=== PATIENT | male | born 1955 | race American Indian/Alaskan Native ===

== ENCOUNTER 2019-07-09 10:28 | Inpatient (IN) | payer OTHER ==
[2019-07-09] MEDS ORDERED: methylPREDNISolone Sod Succinate 125 MG/2 ML INJ IV ONE (11:16)
[2019-07-09] MEDS ORDERED: FUROSEMIDE 40 MG/4 ML INJ IV ONE (11:16)
--- NOTE | 2019-07-09 11:38 | XRay Report ---
CHEST 1 VIEW 07/09/2019 11:16 AM INDICATION / CLINICAL INFORMATION: Dyspnea. COMPARISON: None available. FINDINGS: SUPPORT DEVICES: None. HEART / MEDIASTINUM: No significant abnormality. LUNGS / PLEURA: Lungs are hyperinflated suggesting COPD. There is no focal consolidation or significa nt effusion. No pneumothorax. ADDITIONAL FINDINGS: No significant additional findings. IMPRESSION: 1. No acute findings. Signer Name: Yusef Chavez MD Signed: 07/09/2019 11:34 AM Workstation Name: [employer] ([place])
[2019-07-09 12:04] LABS: Basophils % (Auto) 0.8 % (0.0-1.8); Eosinophils % (Auto) 0.1 % (0.0-4.3); Hematocrit 42.3 % (35.5-45.6); Hemoglobin 13.6 gm/dl (11.8-15.2); Lymphocytes # (Auto) 1.2 K/mm3 (1.2-5.4); Lymphocytes % (Auto) 18.8 % (13.4-35.0); Mean Corpuscular HGB Conc 32 % (32-34); Mean Corpuscular Volume 80 fl (84-94); Monocytes # (Auto) 0.5 K/mm3 (0.0-0.8); Monocytes % (Auto) 7.8 % (0.0-7.3); Platelet Count 180 K/mm3 (140-440); Red Blood Count 5.28 M/mm3 (3.65-5.03); Red Cell Distribution Width 16.3 % (13.2-15.2)
[2019-07-09 12:24] LABS: Alanine Aminotransferase 13 units/L (7-56); BUN/Creatinine Ratio 9; Blood Urea Nitrogen 7 mg/dL (9-20); Calcium 8.8 mg/dL (8.4-10.2); Hemolysis Index 21
[2019-07-09] MEDS ORDERED: IPRATROPIUM 0.02% NEBU 2.5 ML IH ONE ×2 (12:44→13:00)
[2019-07-09] MEDS ORDERED: ALBUTEROL 2.5 MG/3 ML NEBU IH ONE ×2 (12:44→13:00)
[2019-07-09] MEDS ORDERED: levoFLOXacin 750 MG TAB PO ONE (13:56)
--- NOTE | 2019-07-09 15:07 | Emergency Department Report ---
ED Chest Pain HPI - General Chief Complaint: Dyspnea/Respdistress Stated Complaint: DIFFICULTY BREATHING Time Seen by Provider: 07/09/19 10:56 Source: patient, EMS Mode of arrival: Stretcher Limitations: No Limitations - History of Present Illness Severity scale (0 -10): 0 - Related Data Allergies Allergy/AdvReac Type Severity Reaction Status Date / Time No Known Allergies Allergy Unverified 07/09/19 10:47 ED Review of Systems ROS: Stated complaint: DIFFICULTY BREATHING Other details as noted in HPI ED Past Medical Hx - Past Medical History Previous Medical History?: Yes Hx Hypertension: Yes Hx Congestive Heart Failure: Yes Hx COPD: Yes - Social History Smoking Status: Current Every Day Smoker Substance Use Type: Alcohol ED Physical Exam - General Limitations: No Limitations ED Course Vital Signs 07/09/19 07/09/19 07/09/19 11:11 13:45 13:51 Temperature 98.8 F Pulse Rate 88 86 Pulse Rate [ 101 H Anterior Bilateral Throughout] Respiratory 34 H Rate Respiratory 34 H Rate [Anterior Bilateral Throughout] Blood Pressure Blood Pressure 157/89 137/96 [Left] O2 Sat by Pulse 99 Oximetry 07/09/19 07/09/19 07/09/19 13:53 14:15 14:49 Temperature Pulse Rate 100 H 94 H 95 H Pulse Rate [ Anterior Bilateral Throughout] Respiratory 29 H 24 Rate Respiratory Rate [Anterior Bilateral Throughout] Blood Pressure 137/96 Blood Pressure 129/93 128/88 [Left] O2 Sat by Pulse 99 100 Oximetry ED Medical Decision Making - Lab Data Result diagrams: 07/09/19 11:43 07/09/19 11:43 Critical care attestation.: If time is entered above; I have spent that time in minutes in the direct care of this critically ill patient, excluding procedure time. ED Disposition Condition: Stable Referrals: PRIMARY CARE, [Primary Care Provider] - 3-5 Days
--- NOTE | 2019-07-09 15:12 | Emergency Department Report ---
ED Shortness of Breath HPI - General Chief Complaint: Dyspnea/Respdistress Stated Complaint: DIFFICULTY BREATHING Time Seen by Provider: 07/09/19 10:56 Source: patient, EMS Mode of arrival: Stretcher Limitations: No Limitations - History of Present Illness Initial Comments: Mr. Grant is a 63 yo male with hx of HTN, COPD, CHF who presents with shortness of breath, cough wheezing for several days. Followed at the [facility]. SYmptoms are severe. WOrse with exertion. +productive cough no fever +tobacco abuse Arrived via EMS. No relief with albuterol. According to EMS 92% RA saturation Also has mild nondescript 3/10 chest pain, no association with inspiration, cough exertion MD Complaint: shortness of breath, chest pain -: Gradual, days(s) (3) Severity: moderate Consistency: constant Improves With: upright position Worsens With: exertion Known History Of: COPD Associated Symptoms: chest pain - Related Data Allergies Allergy/AdvReac Type Severity Reaction Status Date / Time No Known Allergies Allergy Unverified 07/09/19 10:47 ED Review of Systems ROS: Stated complaint: DIFFICULTY BREATHING Other details as noted in HPI Comment: All other systems reviewed and negative Constitutional: denies: fever, malaise Respiratory: cough, shortness of breath, wheezing Cardiovascular: chest pain ED Past Medical Hx - Past Medical History Previous Medical History?: Yes Hx Hypertension: Yes Hx Congestive Heart Failure: Yes Hx COPD: Yes - Social History Smoking Status: Current Every Day Smoker Substance Use Type: Alcohol ED Physical Exam - General Limitations: No Limitations General appearance: alert, other (speaking full sentences with mild work of breathing) - Head Head exam: Present: atraumatic, normocephalic - Eye Eye exam: Present: normal appearance - ENT ENT exam: Present: mucous membranes moist - Neck Neck exam: Present: normal inspection - Respiratory Respiratory exam: Present: wheezes, decreased breath sounds, prolonged expiratory. Absent: rales, rhonchi, chest wall tenderness, accessory muscle use - Cardiovascular Cardiovascular Exam: Present: regular rate, normal rhythm, normal heart sounds. Absent: systolic murmur, diastolic murmur, rubs, gallop - GI/Abdominal GI/Abdominal exam: Present: soft, normal bowel sounds. Absent: distended, tenderness - Rectal Rectal exam: Present: deferred - Extremities Exam Extremities exam: Present: normal inspection - Neurological Exam Neurological exam: Present: alert, oriented X3 - Psychiatric Psychiatric exam: Present: normal affect, normal mood - Skin Skin exam: Present: warm, dry, intact, normal color. Absent: rash ED Course Vital Signs 07/09/19 07/09/19 07/09/19 11:11 13:45 13:51 Temperature 98.8 F Pulse Rate 88 86 Pulse Rate [ 101 H Anterior Bilateral Throughout] Respiratory 34 H Rate Respiratory 34 H Rate [Anterior Bilateral Throughout] Blood Pressure Blood Pressure 157/89 137/96 [Left] O2 Sat by Pulse 99 Oximetry 07/09/19 07/09/19 07/09/19 13:53 14:15 14:49 Temperature Pulse Rate 100 H 94 H 95 H Pulse Rate [ Anterior Bilateral Throughout] Respiratory 29 H 24 Rate Respiratory Rate [Anterior Bilateral Throughout] Blood Pressure 137/96 Blood Pressure 129/93 128/88 [Left] O2 Sat by Pulse 99 100 Oximetry ED Medical Decision Making - Lab Data Result diagrams: 07/09/19 11:43 07/09/19 11:43 Laboratory Results - last 24 hr 07/09/19 07/09/19 07/09/19 11:43 11:43 14:15 WBC 6.5 RBC 5.28 H Hgb 13.6 Hct 42.3 MCV 80 L MCH 26 L MCHC 32 RDW 16.3 H Plt Count 180 Lymph % (Auto) 18.8 [place] % (Auto) 7.8 H Eos % (Auto) 0.1 Baso % (Auto) 0.8 Lymph # 1.2 [place] # 0.5 Eos # 0.0 Baso # 0.0 Seg Neutrophils % 72.5 H Seg Neutrophils # 4.7 POC ABG pH 7.393 POC ABG pCO2 47.3 H POC ABG pO2 112 H POC ABG HCO3 28.8 POC ABG Total CO2 30 POC ABG O2 Sat 98 POC ABG Base Excess 4 FiO2 40 Sodium 136 L Potassium 4.0 Chloride 97.8 L Carbon Dioxide 25 Anion Gap 17 BUN 7 L Creatinine 0.8 Estimated GFR > 60 BUN/Creatinine Ratio 9 Glucose 103 H Calcium 8.8 Total Bilirubin 0.30 AST 26 ALT 13 Alkaline Phosphatase 54 Troponin T < 0.010 Total Protein 7.3 Albumin 4.0 Albumin/Globulin Ratio 1.2 - Radiology Data Radiology results: report reviewed Chest x-ray: No acute process - Medical Decision Making Upon arrival Mr. Grant, he was in mild distress. After observation, after ambulation he developed severe work of breathing. Requiring non-invasive positive pressure ventilation. ABG revealed chronic CO2 retention. Normal pH. admitted to Medicine service in improved condition. Critical Care Time: Yes Critical care attestation.: If time is entered above; I have spent that time in minutes in the direct care of this critically ill patient, excluding procedure time. 40 minutes of critical care time excluding procedures were used in the care of the patient. Patient required multiple assessments and interventions. I reviewed the electronic medical record. I spoke with consultants involved in the care of the patient. ED Disposition Clinical Impression: COPD with acute exacerbation, Acute respiratory failure with hypoxia Disposition: OP ADMIT IP TO THIS HOSP Is pt being admited?: Yes Does the pt Need Aspirin: No Condition: Stable Instructions: Chronic Obstructive Pulmonary Disease (ED) Referrals: PRIMARY CARE, [Primary Care Provider] - 3-5 Days
[2019-07-09] MEDS ORDERED: ACETAMINOPHEN 325 MG TAB PO PRN ×2 (20:47→22:38)
--- NOTE | 2019-07-09 22:37 | History and Physical Report ---
History of Present Illness Date of examination: 07/09/19 Date of admission: 07/09/19 15:13 Chief complaint: SOB and wheezing for one week. History of present illness: 63 yo male with hx of HTN, COPD, CHF presents with shortness of breath, cough wheezing for one week. More so xince AM. Followed at the [facility]. SYmptoms are severe. WOrse with exertion. +productive cough of mucoid sputum.No fever, tobacco abuse present.Arrived via EMS. No relief with albuterol. According to EMS 92% RA saturation Past Medical History Hypertension Congestive Heart Failure COPD Surgery History N/a Family History Htn Social History Smoking Status: Current Every Day Smoker Substance Use Type: Alcohol Review of Systems ROS: Stated complaint: DIFFICULTY BREATHING Other details as noted in HPI Comment: All other systems reviewed and negative Constitutional: denies: fever, malaise Respiratory: cough, shortness of breath, wheezing Cardiovascular: chest pain Medications and Allergies Allergies Allergy/AdvReac Type Severity Reaction Status Date / Time No Known Allergies Allergy Unverified 07/09/19 10:47 Home Medications Medication Instructions Recorded Confirmed Last Taken Type Acetaminophen [Tylenol] 1,000 mg PO DAILY 07/09/19 07/09/19 Unknown History Albuterol Sulfate [Proventil Hfa] 1 puff INHALATION PRN PRN 07/09/19 07/09/19 07/09/19 History Aspirin [Adult Aspirin] 81 mg PO DAILY 07/09/19 07/09/19 07/08/19 History Budesonide/Formoterol Fumarate 1 puff INHALATION DAILY 07/09/19 07/09/19 07/09/19 History [Symbicort 80-4.5 Mcg Inhaler] Ibuprofen [Motrin 800 MG tab] 800 mg PO Q8HR PRN 07/09/19 07/09/19 07/08/19 History Simvastatin 10 mg PO DAILY 07/09/19 07/09/19 07/08/19 History Active Meds: Active Medications Acetaminophen (Tylenol) 650 mg PO Q4H PRN PRN Reason: Pain, Mild (1-3) Exam - Constitutional Vitals: Temp Pulse Resp BP Pulse Ox 99.3 F 82 22 148/88 98 07/09/19 19:43 07/09/19 19:43 07/09/19 19:43 07/09/19 19:43 07/09/19 19:43 General appearance: Present: no acute distress, well-nourished - EENT Eyes: Present: PERRL ENT: hearing intact, clear oral mucosa - Neck Neck: Present: supple, normal ROM - Respiratory Respiratory effort: normal Respiratory: bilateral: diminished, rhonchi, wheezing - Cardiovascular Heart rate: 78 Rhythm: regular Heart Sounds: Present: S1 & S2. Absent: rub, click - Extremities Extremities: no ischemia, pulses intact, pulses symmetrical, No edema Peripheral Pulses: within normal limits - Abdominal General gastrointestinal: Present: soft, non-tender, non-distended, normal bowel sounds Male genitourinary: Present: normal - Rectal Rectal Exam: deferred - Integumentary Integumentary: Present: clear, warm, dry - Musculoskeletal Musculoskeletal: gait normal, strength equal bilaterally - Psychiatric Psychiatric: appropriate mood/affect, intact judgment & insight - Neurologic Neurologic: CNII-XII intact, moves all extremities - Allied Health Allied health notes reviewed: nursing, case management Results - Labs CBC & Chem 7: 07/10/19 03:42 07/10/19 03:42 Labs: Laboratory Last Values WBC 6.5 K/mm3 (4.5-11.0) 07/09/19 11:43 RBC 5.28 M/mm3 (3.65-5.03) H 07/09/19 11:43 Hgb 13.6 gm/dl (11.8-15.2) 07/09/19 11:43 Hct 42.3 % (35.5-45.6) 07/09/19 11:43 MCV 80 fl (84-94) L 07/09/19 11:43 MCH 26 pg (28-32) L 07/09/19 11:43 MCHC 32 % (32-34) 07/09/19 11:43 RDW 16.3 % (13.2-15.2) H 07/09/19 11:43 Plt Count 180 K/mm3 (140-440) 07/09/19 11:43 Lymph % (Auto) 18.8 % (13.4-35.0) 07/09/19 11:43 [place] % (Auto) 7.8 % (0.0-7.3) H 07/09/19 11:43 Eos % (Auto) 0.1 % (0.0-4.3) 07/09/19 11:43 Baso % (Auto) 0.8 % (0.0-1.8) 07/09/19 11:43 Lymph # 1.2 K/mm3 (1.2-5.4) 07/09/19 11:43 [place] # 0.5 K/mm3 (0.0-0.8) 07/09/19 11:43 Eos # 0.0 K/mm3 (0.0-0.4) 07/09/19 11:43 Baso # 0.0 K/mm3 (0.0-0.1) 07/09/19 11:43 Seg Neutrophils % 72.5 % (40.0-70.0) H 07/09/19 11:43 Seg Neutrophils # 4.7 K/mm3 (1.8-7.7) 07/09/19 11:43 POC ABG pH 7.393 (7.35-7.45) 07/09/19 14:15 POC ABG pCO2 47.3 (35-45) H 07/09/19 14:15 POC ABG pO2 112 (80-105) H 07/09/19 14:15 POC ABG HCO3 28.8 (22-26 mml/L) 07/09/19 14:15 POC ABG Total CO2 30 (23-27mmol/L) 07/09/19 14:15 POC ABG O2 Sat 98 07/09/19 14:15 POC ABG Base Excess 4 ((-2) - (+3)mmol/L) 07/09/19 14:15 FiO2 40 % 07/09/19 14:15 Sodium 136 mmol/L (137-145) L 07/09/19 11:43 Potassium 4.0 mmol/L (3.6-5.0) 07/09/19 11:43 Chloride 97.8 mmol/L (98-107) L 07/09/19 11:43 Carbon Dioxide 25 mmol/L (22-30) 07/09/19 11:43 Anion Gap 17 mmol/L 07/09/19 11:43 BUN 7 mg/dL (9-20) L 07/09/19 11:43 Creatinine 0.8 mg/dL (0.8-1.5) 07/09/19 11:43 Estimated GFR > 60 ml/min 07/09/19 11:43 BUN/Creatinine Ratio 9 % 07/09/19 11:43 Glucose 103 mg/dL (75-100) H 07/09/19 11:43 Calcium 8.8 mg/dL (8.4-10.2) 07/09/19 11:43 Total Bilirubin 0.30 mg/dL (0.1-1.2) 07/09/19 11:43 AST 26 units/L (5-40) 07/09/19 11:43 ALT 13 units/L (7-56) 07/09/19 11:43 Alkaline Phosphatase 54 units/L (35-129) 07/09/19 11:43 Troponin T < 0.010 ng/mL (0.00-0.029) 07/09/19 11:43 Total Protein 7.3 g/dL (6.3-8.2) 07/09/19 11:43 Albumin 4.0 g/dL (3.9-5) 07/09/19 11:43 Albumin/Globulin Ratio 1.2 % 07/09/19 11:43 Short CBC 07/09/19 07/10/19 Range/Units 11:43 03:42 WBC 6.5 3.3 L (4.5-11.0) K/mm3 Hgb 13.6 13.0 (11.8-15.2) gm/dl Hct 42.3 40.7 (35.5-45.6) % Plt Count 180 175 (140-440) K/mm3 BMP 07/09/19 07/10/19 11:43 03:42 Sodium 136 L 137 Potassium 4.0 4.2 Chloride 97.8 L 94.3 L Carbon Dioxide 25 27 BUN 7 L 13 Creatinine 0.8 0.8 Glucose 103 H 146 H Calcium 8.8 8.9 Cardiac Enzymes 07/09/19 Range/Units 11:43 Troponin T < 0.010 (0.00-0.029) ng/mL Liver Function 07/09/19 07/10/19 Range/Units 11:43 03:42 Total Bilirubin 0.30 0.30 (0.1-1.2) mg/dL AST 26 23 (5-40) units/L ALT 13 12 (7-56) units/L Alkaline Phosphatase 54 48 (35-129) units/L Albumin 4.0 4.0 (3.9-5) g/dL - Imaging and Cardiology EKG: report reviewed (97 NSR ,RONALDO,LAFB,VPC's) Chest x-ray: report reviewed (NAF) Assessment and Plan Advance Directives: Yes (Full code) VTE prophylaxis?: Chemical Plan of care discussed with patient/family: Yes - Patient Problems (1) Acute respiratory failure with hypoxia Current Visit: Yes Status: Acute Plan to address problem: Was Hypoxic and Hypercarbic on arrival. IV Solumedrol IV abx -Levaquin and Duonebs QID and Prn Pulm consult (2) COPD with acute exacerbation Current Visit: Yes Status: Acute Plan to address problem: Was Hypoxic and Hypercarbic on arrival. IV Solumedrol IV abx -Levaquin and Duonebs QID and Prn Pulm consult (3) HLD (hyperlipidemia) Current Visit: Yes Status: Chronic Qualifiers: Hyperlipidemia type: mixed hyperlipidemia Qualified Code(s): E78.2 - Mixed hyperlipidemia Plan to address problem: On Statins HDL high May not need statins. Will defer to primary team. (4) Nicotine dependence Current Visit: Yes Status: Chronic Qualifiers: Nicotine product type: cigarettes Plan to address problem: Counselled Nicoderm patch applied (5) Hyponatremia Current Visit: Yes Status: Acute Plan to address problem: Very mild Avoid diuretics (6) DVT prophylaxis Current Visit: Yes Status: Acute Plan to address problem: On Heparin and GI prophylaxis
[2019-07-09] MEDS ORDERED: HYDROmorphone 1 MG/1 ML INJ IV PRN (22:38)
[2019-07-09] MEDS ORDERED: ONDANSETRON 4 MG/2 ML INJ IV PRN (22:38)
[2019-07-09] MEDS ORDERED: IPRATROPIUM/ALBUTEROL SULFATE 3 ML AMPUL.NEB IH PRN (22:39)
[2019-07-09] MEDS ORDERED: ALBUTEROL 2.5 MG/3 ML NEBU IH PRN (22:58)
[2019-07-10] MEDS: methylPREDNISolone Sod Succinate 125 MG/2 ML INJ IV SCH ×4 (00:07→21:39)
[2019-07-10] MEDS: guaiFENesin ER 600 MG TAB PO SCH ×3 (00:44→21:39)
[2019-07-10 05:16] LABS: Basophils % (Auto) 0.3 % (0.0-1.8); Hematocrit 40.7 % (35.5-45.6); Lymphocytes # (Auto) 0.7 K/mm3 (1.2-5.4); Lymphocytes % (Auto) 21.7 % (13.4-35.0); Mean Corpuscular HGB Conc 32 % (32-34); Mean Corpuscular Volume 80 fl (84-94); Monocytes # (Auto) 0.1 K/mm3 (0.0-0.8); Monocytes % (Auto) 2.9 % (0.0-7.3); Platelet Count 175 K/mm3 (140-440); Red Cell Distribution Width 16.5 % (13.2-15.2)
[2019-07-10 05:39] LABS: Alanine Aminotransferase 12 units/L (7-56); BUN/Creatinine Ratio 16; Blood Urea Nitrogen 13 mg/dL (9-20); Calcium 8.9 mg/dL (8.4-10.2); Hemolysis Index 6
[2019-07-10] MEDS: IPRATROPIUM/ALBUTEROL SULFATE 3 ML AMPUL.NEB IH SCH ×4 (08:50→19:16)
[2019-07-10] MEDS ORDERED: NON-FORMULARY EACH (Simvastatin [Simvastatin] 10 MG) PO SCH (10:00)
[2019-07-10] MEDS: ASPIRIN EC 81 MG TAB PO SCH (10:36)
[2019-07-10] MEDS: HEPARIN 5,000 UNIT/1 ML VIAL SUB-Q SCH ×2 (10:36→21:38)
[2019-07-10] MEDS: FAMOTIDINE 20 MG/2 ML INJ IV SCH ×2 (10:36→21:39)
--- NOTE | 2019-07-10 12:06 | Progress Note ---
Assessment and Plan / Acute respiratory failure with hypoxia Was Hypoxic and Hypercarbic on arrival. placed on IV Solumedrol IV abx -Levaquin and Duonebs QID and Prn Pulm consulted / COPD with acute exacerbation Cont IV Solumedrol IV abx -Levaquin and Duonebs QID and Prn Follow pulmonary recommendation / HLD (hyperlipidemia), On Statins /Nicotine dependence Counselled, Nicoderm patch applied /Hyponatremia Very mild, Avoid diuretics / DVT prophylaxis, On Heparin Brief History: 63 yo male with hx of HTN, COPD, CHF presents with shortness of breath, cough wheezing for one week. Followed at the [facility]. Has +productive cough with mucoid sputum. Radiological data: CXR : no acute findings Hospitalist Physical exam: GENERAL: Elderly -[place] male lying on bed appeared to be in no discomfort. HEENT: Normocephalic. Atraumatic. No conjunctival congestion or icterus. Patient has moist mucous membranes. NECK: Supple. Trachea midline. CHEST/LUNGS: Positive wheezes auscultated bilaterally, breathing nonlabored. HEART/CARDIOVASCULAR: Regular in rate and rhythm. S1 and S2 positive. ABDOMEN: Abdomen is soft, nontender. Patient has normal bowel sounds. SKIN: There is no rash. Warm and dry. NEURO: No focal motor deficit. Follows command. MUSCULOSKELETAL: No joint effusion or tenderness. EXTRIMITY: No edema, no cyanosis or clubbing. PSYCH: Cooperative. Subjective Date of service: 07/10/19 Interval history: Patient seen and examined. Medical records and medication list reviewed. No acute event overnight noted by the RN. Patient continued to complain soft difficulty breathing even on minimal exertion. Patient is tolerating diet. Discussed plan of care at bedside with patient. Objective - Constitutional Vitals: Vital Signs - 12hr 07/10/19 07/10/19 05:08 08:27 Temperature 97.8 F Pulse Rate 87 Respiratory 18 17 Rate Blood Pressure 137/90 O2 Sat by Pulse 92 Oximetry - Labs CBC & Chem 7: 07/10/19 03:42 07/10/19 03:42 Labs: Abnormal lab results 07/09/19 07/09/19 07/09/19 Range/Units 11:43 11:43 14:15 WBC (4.5-11.0) K/mm3 RBC 5.28 H (3.65-5.03) M/mm3 MCV 80 L (84-94) fl MCH 26 L (28-32) pg RDW 16.3 H (13.2-15.2) % Lymph # (1.2-5.4) K/mm3 Seg Neutrophils % (40.0-70.0) % POC ABG pCO2 47.3 H (35-45) POC ABG pO2 112 H (80-105) Sodium 136 L (137-145) mmol/L Chloride 97.8 L (98-107) mmol/L BUN 7 L (9-20) mg/dL Glucose 103 H (75-100) mg/dL 07/10/19 07/10/19 Range/Units 03:42 03:42 WBC 3.3 L (4.5-11.0) K/mm3 RBC 5.10 H (3.65-5.03) M/mm3 MCV 80 L (84-94) fl MCH 25 L (28-32) pg RDW 16.5 H (13.2-15.2) % Lymph # 0.7 L (1.2-5.4) K/mm3 Seg Neutrophils % 75.1 H (40.0-70.0) % POC ABG pCO2 (35-45) POC ABG pO2 (80-105) Sodium (137-145) mmol/L Chloride 94.3 L (98-107) mmol/L BUN (9-20) mg/dL Glucose 146 H (75-100) mg/dL
[2019-07-10] MEDS ORDERED: METOPROLOL TARTRATE 5 MG/5 ML INJ IV ONE (20:22)
[2019-07-10] MEDS: PRAVASTATIN 20 MG TAB PO SCH (21:39)
[2019-07-10] MEDS ORDERED: LEVALBUTEROL 0.63 MG/3 ML NEBU IH PRN (23:48)
[2019-07-10] MEDS ORDERED: IPRATROPIUM 0.02% NEBU 2.5 ML IH PRN (23:49)
[2019-07-11] MEDS ORDERED: LEVALBUTEROL 0.63 MG/3 ML NEBU IH PRN (01:00)
[2019-07-11] MEDS: methylPREDNISolone Sod Succinate 125 MG/2 ML INJ IV SCH ×3 (05:36→21:23)
[2019-07-11] MEDS ORDERED: METOPROLOL TARTRATE 5 MG/5 ML INJ IV ONE (09:22)
[2019-07-11] MEDS: HEPARIN 5,000 UNIT/1 ML VIAL SUB-Q SCH ×2 (09:35→21:23)
[2019-07-11] MEDS: guaiFENesin ER 600 MG TAB PO SCH ×2 (09:35→21:22)
[2019-07-11] MEDS: ASPIRIN EC 81 MG TAB PO SCH (09:35)
[2019-07-11] MEDS: FAMOTIDINE 20 MG/2 ML INJ IV SCH ×2 (10:20→21:22)
[2019-07-11] MEDS: AMIODARONE 900 MG in DEXTROSE 5% IN WATER 482 ML IV SCH (11:51)
--- NOTE | 2019-07-11 13:43 | Progress Note ---
Assessment and Plan /SVT - placed on amio drip, consult cardiology / Acute respiratory failure with hypoxia Was Hypoxic and Hypercarbic on arrival. placed on IV Solumedrol IV abx -Levaquin and Duonebs QID and Prn Pulm consulted / COPD with acute exacerbation Cont IV Solumedrol IV abx -Levaquin and Duonebs QID and Prn Follow pulmonary recommendation / HLD (hyperlipidemia), On Statins /Nicotine dependence Counselled, Nicoderm patch applied /Hyponatremia Very mild, Avoid diuretics / DVT prophylaxis, On Heparin Brief History: 63 yo male with hx of HLD, COPD, ? CHF presents with shortness of breath, cough wheezing for one week. Followed at the [facility]. Has +productive cough with mucoid sputum. Radiological data: CXR : no acute findings Hospitalist Physical exam: GENERAL: Elderly -[place] male lying on bed appeared to be in no discomfort. HEENT: Normocephalic. Atraumatic. No conjunctival congestion or icterus. Patient has moist mucous membranes. NECK: Supple. Trachea midline. CHEST/LUNGS: Positive wheezes auscultated bilaterally, breathing nonlabored. HEART/CARDIOVASCULAR: Tachycardic. S1 and S2 positive. ABDOMEN: Abdomen is soft, nontender. Patient has normal bowel sounds. SKIN: There is no rash. Warm and dry. NEURO: No focal motor deficit. Follows command. MUSCULOSKELETAL: No joint effusion or tenderness. EXTRIMITY: No edema, no cyanosis or clubbing. PSYCH: Cooperative. Subjective Date of service: 07/11/19 Interval history: Patient seen and examined. Medical records and medication list reviewed. No acute event overnight noted by the RN. Patient continued to complain soft difficulty breathing even on minimal exertion. Patient is tolerating diet. Noted on SVT on the monitor o/n, heart rate ranging from 130 to high 150s Discussed plan of care at bedside with patient. Objective - Constitutional Vitals: Vital Signs - 12hr 07/11/19 07/11/19 07/11/19 07:30 08:00 08:01 Temperature 97.9 F Pulse Rate 93 H Pulse Rate [ 108 H Anterior Bilateral Throughout] Respiratory 16 18 Rate Respiratory 18 Rate [Anterior Bilateral Throughout] Blood Pressure 135/93 O2 Sat by Pulse 95 Oximetry 07/11/19 10:00 Temperature Pulse Rate 121 H Pulse Rate [ Anterior Bilateral Throughout] Respiratory Rate Respiratory Rate [Anterior Bilateral Throughout] Blood Pressure 131/82 O2 Sat by Pulse 95 Oximetry - Labs CBC & Chem 7: 07/10/19 03:42 07/10/19 03:42
[2019-07-11] MEDS ORDERED: IPRATROPIUM 0.02% NEBU 2.5 ML IH SCH (14:00)
[2019-07-11] MEDS ORDERED: LEVALBUTEROL 0.63 MG/3 ML NEBU IH SCH (14:00)
[2019-07-11] MEDS: IPRATROPIUM/ALBUTEROL SULFATE 3 ML AMPUL.NEB IH SCH ×2 (14:13→20:02)
[2019-07-11] MEDS: dilTIAZem 30 MG TAB PO SCH ×3 (14:39→21:22)
--- NOTE | 2019-07-11 16:20 | Consultation ---
History of Present Illness Consult date: 07/11/19 Requesting physician: AMBER GALARZA Consult reason: other (SVT) History of present illness: Mr. Grant is a 63 y/o male with a medical history significant for CAD s/p PCI (approx 10 years ago), CHF, COPD, current tobacco abuse and hypertension who presented to [facility] on 07/09/19 with shortness of breath and chest pain that began on Friday and worsened over the next few days. He has followed with a pastry wrapper at [place], but not recently and is unsure when his last visit was. He describes the CP as left-sided pressure that occurs mostly with movement. It is non-reproducible. He also endorses an intermittent cough productive of white sputum for the past few weeks. Troponins negative and EKG with NAF. On 07/11/19, he was found to be in SVT; an amiodarone drip and PO diltiazem were initiated. He subsequently converted to NSR with several very transient breakthroughs of SVT. Past History Past Medical History: CAD, COPD, hypertension, other (tobacco abuse) Past Surgical History: PTCA Medications and Allergies Allergies Allergy/AdvReac Type Severity Reaction Status Date / Time No Known Allergies Allergy Unverified 07/09/19 10:47 Home Medications Medication Instructions Recorded Confirmed Last Taken Type Acetaminophen [Tylenol] 1,000 mg PO DAILY 07/09/19 07/09/19 Unknown History Albuterol Sulfate [Proventil Hfa] 1 puff INHALATION PRN PRN 07/09/19 07/09/19 07/09/19 History Aspirin [Adult Aspirin] 81 mg PO DAILY 07/09/19 07/09/19 07/08/19 History Budesonide/Formoterol Fumarate 1 puff INHALATION DAILY 07/09/19 07/09/19 07/09/19 History [Symbicort 80-4.5 Mcg Inhaler] Ibuprofen [Motrin 800 MG tab] 800 mg PO Q8HR PRN 07/09/19 07/09/19 07/08/19 History Simvastatin 10 mg PO DAILY 07/09/19 07/09/19 07/08/19 History Active Meds: Active Medications Acetaminophen (Tylenol) 650 mg PO Q4H PRN PRN Reason: Pain MILD(1-3)/Fever >100.5/BARNEY Albuterol/Ipratropium (Duoneb *Not For Prn Use*) 1 ampul IH Q6HRT [facility] Last Admin: 07/11/19 14:13 Dose: 1 ampul Documented by: Aspirin (Halfprin Ec) 81 mg PO DAILY [facility] Last Admin: 07/11/19 09:35 Dose: 81 mg Documented by: Budesonide 0.5 mg/ (Arformoterol Tartrate 15 mcg) 0 mg IH Q12HRT [facility] Diltiazem HCl (Cardizem) 30 mg PO Q4HR [facility] Last Admin: 07/11/19 14:39 Dose: 30 mg Documented by: Famotidine (Pepcid) 20 mg IV BID [facility] Last Admin: 07/11/19 10:20 Dose: 20 mg Documented by: Guaifenesin (Mucinex Er) 600 mg PO BID [facility] Last Admin: 07/11/19 09:35 Dose: 600 mg Documented by: Heparin Sodium (Porcine) (Heparin) 5,000 unit SUB-Q Q12HR [facility] Last Admin: 07/11/19 09:35 Dose: 5,000 unit Documented by: Hydromorphone HCl (Dilaudid) 0.5 mg IV Q3H PRN PRN Reason: Pain , Severe (7-10) Levofloxacin/Dextrose (Levaquin 750mg/150ml) 750 mg in 150 mls @ 100 mls/hr IV Q24HR [facility]; Protocol Last Admin: 07/11/19 10:10 Dose: 100 mls/hr Documented by: Amiodarone HCl 900 mg/ (Dextrose) 500 mls @ 33.333 mls/hr IV DIRECT [facility]; Protocol Stop: 07/12/19 12:00 Last Admin: 07/11/19 11:51 Dose: 1 mg/min, 33.333 mls/hr Documented by: Methylprednisolone Sodium Succinate (Solu-Medrol) 40 mg IV Q8HR [facility] Last Admin: 07/11/19 14:39 Dose: 40 mg Documented by: Ondansetron HCl (Zofran) 4 mg IV Q8H PRN PRN Reason: Nausea And Vomiting Oxycodone/Acetaminophen (Percocet 5/325) 1 tab PO Q6H PRN PRN Reason: Pain, Moderate (4-6) Pravastatin Sodium (Pravachol) 20 mg PO QHS [facility] Last Admin: 07/10/19 21:39 Dose: 20 mg Documented by: Sodium Chloride (Sodium Chloride Flush Syringe 10 Ml) 10 ml IV BID [facility] Last Admin: 07/11/19 09:36 Dose: 10 ml Documented by: Sodium Chloride (Sodium Chloride Flush Syringe 10 Ml) 10 ml IV PRN PRN PRN Reason: LINE FLUSH Review of Systems All systems: negative Cardiovascular: chest pain Respiratory: shortness of breath Physical Examination Vital Signs Pulse Ox 98 07/09/19 10:54 General appearance: no acute distress HEENT: Positive: PERRL Neck: Positive: neck supple Cardiac: Positive: Reg Rate and Rhythm Lungs: Positive: Decreased Breath Sounds Neuro: Positive: Grossly Intact Abdomen: Positive: Unremarkable Male genitourinary: Positive: deferred Skin: Positive: Clear Musculoskeletal: Normal Range of Motion Extremities: Present: normal Results 07/10/19 03:42 07/10/19 03:42 - Imaging and Cardiology Echo: pending EKG: report reviewed (NSR with possible old infarct, ST-depression) - EKG Interpretation EKG: sinus rhythm EKG interpretations - Telemetry EKG Rhythm: Sinus Rhythm Repolarization changes or abnormalities: ST or T wave suggestive of ischemia Myocardial infarction: anterior [place] (old age or i Assessment and Plan Mr. Grant is a 63 y/o male admitted with chest pain and SOB. Will obtain echocardiogram and Lexiscan stress test in AM. Continue PO diltiazem and amiodarone drip for now - will likely wean in AM. Will hold on beta tyshawn for now d/t COPD exacerbation. Continue other cardiac management for now. The patient has been seen in conjunction with Dr. Ricketts, who agrees with the assessment and plan. - Patient Problems (1) SVT (supraventricular tachycardia) Current Visit: Yes Status: Acute (2) Acute respiratory failure with hypoxia Current Visit: Yes Status: Acute (3) COPD with acute exacerbation Current Visit: Yes Status: Acute (4) Hypertension Current Visit: Yes Status: Chronic (5) Presence of stent in coronary artery in patient with coronary artery disease Current Visit: Yes Status: Chronic
[2019-07-11] MEDS: PRAVASTATIN 20 MG TAB PO SCH (21:22)
[2019-07-11] MEDS: guaiFENesin DM 200/20 MG ORAL LIQD 10 ML PO PRN (21:24)
[2019-07-12] MEDS: IPRATROPIUM/ALBUTEROL SULFATE 3 ML AMPUL.NEB IH SCH ×4 (02:35→19:26)
[2019-07-12] MEDS: dilTIAZem 30 MG TAB PO SCH ×3 (02:55→09:26)
[2019-07-12] MEDS: methylPREDNISolone Sod Succinate 125 MG/2 ML INJ IV SCH ×3 (05:40→22:50)
[2019-07-12] MEDS: AMIODARONE 900 MG in DEXTROSE 5% IN WATER 482 ML IV SCH (07:07)
[2019-07-12] MEDS ORDERED: REGADENOSON 0.4 MG/5 ML INJ IV ONE ×2 (07:10→08:54)
[2019-07-12] MEDS: ASPIRIN EC 81 MG TAB PO SCH (09:26)
[2019-07-12] MEDS: guaiFENesin ER 600 MG TAB PO SCH ×2 (09:26→22:49)
[2019-07-12] MEDS: HEPARIN 5,000 UNIT/1 ML VIAL SUB-Q SCH (09:26)
[2019-07-12] MEDS: FAMOTIDINE 20 MG/2 ML INJ IV SCH (09:26)
[2019-07-12] MEDS: guaiFENesin DM 200/20 MG ORAL LIQD 10 ML PO PRN (09:26)
--- NOTE | 2019-07-12 11:56 | Progress Note ---
Assessment and Plan tele reviewed - currently in SR with very brief bouts (2-3 seconds) of apparent atrial flutter with 2:1 conduction overnight. Optimize HR - increase cardizem dosage and d/c amio gtt. Initiate full dosage lovenox BID and plan for conversion to OAC prior to discharge. Await echo. Cont management of COPD exac per primary. Consider pulmonary consultation as pt is noted to have significant wheezing on evaluation despite Duonebs, IV steroids and abx. Plan for lexiscan MPI stress test in AM pending respiratory status is improved. NPO after MN. The patient has been seen in conjunction with Dr. Rodríguez who agrees with the assessment and plan of care. - Patient Problems (1) Paroxysmal atrial flutter Current Visit: Yes Status: Acute (2) Acute respiratory failure with hypoxia Current Visit: Yes Status: Acute (3) COPD with acute exacerbation Current Visit: Yes Status: Acute (4) CAD (coronary artery disease) Current Visit: Yes Status: Chronic (5) Stented coronary artery Current Visit: Yes Status: Chronic (6) Hypertension Current Visit: Yes Status: Chronic (7) Tobacco use Current Visit: Yes Status: Chronic Subjective Date of service: 07/12/19 Principal diagnosis: cp; palpitations; copd exac; PAFlutter Interval history: pt resting in bed, no current chest pain or palpitations. still with SOB and wheezing. tele reviewed - currently in SR with very brief bouts (2-3 seconds) of apparent atrial flutter with 2:1 conduction overnight. Objective Last Vital Signs Temp 98.0 F 07/12/19 07:35 Pulse 83 07/12/19 08:00 Resp 20 07/12/19 08:00 BP 130/78 07/12/19 07:35 Pulse Ox 96 07/12/19 08:07 - Physical Examination General: No Apparent Distress HEENT: Positive: PERRL Neck: Positive: neck supple Cardiac: Positive: Reg Rate and Rhythm, S1/S2 Lungs: Positive: Decreased Breath Sounds, Wheezes, Oxygen Neuro: Positive: Grossly Intact Abdomen: Positive: Unremarkable Skin: Positive: Clear Musculoskeletal: Normal Range of Motion Extremities: Present: normal - Imaging and Cardiology EKG: report reviewed (NSR with possible old infarct, ST-depression) Echo: pending - Telemetry EKG Rhythm: Sinus Rhythm Repolarization changes or abnormalities: ST or T wave suggestive of ischemia Myocardial infarction: anterior CA (old age or i
[2019-07-12] MEDS: dilTIAZem 60 MG TAB PO SCH ×2 (13:15→20:12)
[2019-07-12 13:53] LABS: BUN/Creatinine Ratio 20; Blood Urea Nitrogen 16 mg/dL (9-20); Calcium 8.8 mg/dL (8.4-10.2); Hemolysis Index 6
--- NOTE | 2019-07-12 14:25 | Progress Note ---
Assessment and Plan /SVT then converted Atrial flutter - s/p amio drip, consulted cardiology - on cardizem and therapeutic dose of lovenox - plan for stress test when respiratory status improves / Acute respiratory failure Was Hypoxic and Hypercarbic on arrival. placed on IV Solumedrol IV abx -Levaquin and Duonebs QID and Prn Pulm consulted / COPD with acute exacerbation Cont IV Solumedrol IV abx -Levaquin and Duonebs QID and Prn Follow pulmonary recommendation / HLD (hyperlipidemia), On Statins /Nicotine dependence Counselled, Nicoderm patch applied /Hyponatremia Very mild, Avoid diuretics / DVT prophylaxis, On Heparin Brief History: 63 yo male with hx of HLD, COPD, ? CHF presents with shortness of breath, cough wheezing for one week. Followed at the [facility]. Has +productive cough with mucoid sputum. admitted for COPD. Now noted SVT/atrial flutter on monitor Radiological data: CXR : no acute findings Hospitalist Physical exam: GENERAL: Elderly -[place] male lying on bed appeared to be in no discomfort. HEENT: Normocephalic. Atraumatic. No conjunctival congestion or icterus. Patient has moist mucous membranes. NECK: Supple. Trachea midline. CHEST/LUNGS: Positive wheezes auscultated bilaterally, breathing nonlabored. HEART/CARDIOVASCULAR: Tachycardic. S1 and S2 positive. ABDOMEN: Abdomen is soft, nontender. Patient has normal bowel sounds. SKIN: There is no rash. Warm and dry. NEURO: No focal motor deficit. Follows command. MUSCULOSKELETAL: No joint effusion or tenderness. EXTRIMITY: No edema, no cyanosis or clubbing. PSYCH: Cooperative. Subjective Date of service: 07/12/19 Principal diagnosis: cp; palpitations; copd exac; PAFlutter Interval history: Patient seen and examined. Medical records and medication list reviewed. No acute event overnight noted by the RN. Patient continued to complain of difficulty breathing even on minimal exertion. Patient is tolerating diet. Noted on atrial flutter on tele O/N Stress test cancel today for his SOB Discussed plan of care at bedside with patient. Objective - Constitutional Vitals: Vital Signs - 12hr 07/12/19 07/12/19 07/12/19 02:55 04:29 05:40 Temperature 98.7 F Pulse Rate 75 67 68 Pulse Rate [ Anterior Bilateral Throughout] Respiratory 24 Rate Respiratory Rate [Anterior Bilateral Throughout] Blood Pressure 139/91 140/90 140/90 O2 Sat by Pulse 94 Oximetry 07/12/19 07/12/19 07/12/19 07:35 08:00 08:07 Temperature 98.0 F Pulse Rate 67 Pulse Rate [ 83 Anterior Bilateral Throughout] Respiratory 18 24 Rate Respiratory 20 Rate [Anterior Bilateral Throughout] Blood Pressure 130/78 O2 Sat by Pulse 90 96 Oximetry 07/12/19 07/12/19 13:00 13:47 Temperature 97.9 F Pulse Rate 77 Pulse Rate [ 86 Anterior Bilateral Throughout] Respiratory 18 Rate Respiratory 18 Rate [Anterior Bilateral Throughout] Blood Pressure 142/88 O2 Sat by Pulse 93 Oximetry - Labs CBC & Chem 7: 07/10/19 03:42 07/12/19 13:02 Labs: Abnormal lab results 07/12/19 Range/Units 13:02 Sodium 135 L (137-145) mmol/L Chloride 93.8 L (98-107) mmol/L Glucose 179 H (75-100) mg/dL Magnesium 2.40 H (1.7-2.3) mg/dL
[2019-07-12] MEDS ORDERED: ENOXAPARIN 100 MG/1 ML INJ SUB-Q SCH (22:00)
[2019-07-12] MEDS: PRAVASTATIN 20 MG TAB PO SCH (22:49)
[2019-07-12] MEDS: FAMOTIDINE 20 MG TAB PO SCH (22:49)
[2019-07-13] MEDS: IPRATROPIUM/ALBUTEROL SULFATE 3 ML AMPUL.NEB IH SCH ×4 (01:47→19:11)
[2019-07-13] MEDS: dilTIAZem 60 MG TAB PO SCH ×4 (02:24→20:35)
[2019-07-13] MEDS: oxyCODONE /ACETAMINOPHEN 5-325MG TAB PO PRN (02:24)
[2019-07-13] MEDS: methylPREDNISolone Sod Succinate 125 MG/2 ML INJ IV SCH ×3 (06:13→22:39)
[2019-07-13] MEDS ORDERED: AMINOPHYLLINE 500 MG/20 ML INJ IV ONE ×2 (09:50→10:30)
[2019-07-13] MEDS ORDERED: REGADENOSON 0.4 MG/5 ML INJ IV ONE (10:00)
[2019-07-13] MEDS ORDERED: AMINOPHYLLINE 50 MG in SODIUM CHLORIDE 0.9% 100 ML IV ONE (10:28)
--- NOTE | 2019-07-13 10:44 | Progress Note ---
Assessment and Plan Pt underwent lexiscan MPI stress test this AM, results pending. He developed severe wheezing and respiratory distress after administration of lexiscan, lexiscan reversed and wheezing improved although O2 sats remain 88-90%. Recommend pulmonary consultation and possible tx to IMCU/CCU for closer observation. D/w Dr. Lynn. Echo reviewed - EF 55-60%, mild to mod TR, mod pulm HTN with RVSP 58mmHg. Cont present cardiac management, including cardizem and full dosage lovenox BID. The patient has been seen in conjunction with Dr. Rodríguez who agrees with the assessment and plan of care. - Patient Problems (1) Paroxysmal atrial flutter Current Visit: Yes Status: Acute (2) Acute respiratory failure with hypoxia Current Visit: Yes Status: Acute (3) COPD with acute exacerbation Current Visit: Yes Status: Acute (4) CAD (coronary artery disease) Current Visit: Yes Status: Chronic (5) Stented coronary artery Current Visit: Yes Status: Chronic (6) Hypertension Current Visit: Yes Status: Chronic (7) Tobacco use Current Visit: Yes Status: Chronic (8) Pulmonary HTN Current Visit: Yes Status: Chronic Subjective Date of service: 07/13/19 Principal diagnosis: cp; palpitations; copd exac; PAFlutter Interval history: pt for stress test today Objective Last Vital Signs Temp 97.9 F 07/13/19 07:20 Pulse 64 07/13/19 08:42 Resp 18 07/13/19 07:20 BP 164/94 07/13/19 07:20 Pulse Ox 93 07/13/19 07:20 - Physical Examination General: No Apparent Distress HEENT: Positive: PERRL Neck: Positive: neck supple Cardiac: Positive: Reg Rate and Rhythm, S1/S2 Lungs: Positive: Decreased Breath Sounds, Wheezes, Oxygen Neuro: Positive: Grossly Intact Abdomen: Positive: Unremarkable Skin: Positive: Clear Musculoskeletal: Normal Range of Motion Extremities: Present: normal - Labs and Meds Comprehensive Metabolic Panel 07/12/19 Range/Units 13:02 Sodium 135 L (137-145) mmol/L Potassium 4.4 (3.6-5.0) mmol/L Chloride 93.8 L (98-107) mmol/L Carbon Dioxide 25 (22-30) mmol/L BUN 16 (9-20) mg/dL Creatinine 0.8 (0.8-1.5) mg/dL Glucose 179 H (75-100) mg/dL Calcium 8.8 (8.4-10.2) mg/dL - Imaging and Cardiology EKG: report reviewed (NSR with possible old infarct, ST-depression) Echo: pending Repolarization changes or abnormalities: ST or T wave suggestive of ischemia Myocardial infarction: anterior [place] (old age or i
--- NOTE | 2019-07-13 11:52 | Event Note ---
Date: 07/13/19 S/p lexiscan MPI stress test this AM which was negative. Yusef MICHAELS NP / DR. GARCIA
[2019-07-13] MEDS: FAMOTIDINE 20 MG TAB PO SCH ×2 (12:08→22:39)
[2019-07-13] MEDS: guaiFENesin ER 600 MG TAB PO SCH ×2 (12:08→22:39)
[2019-07-13] MEDS: ASPIRIN EC 81 MG TAB PO SCH (12:09)
[2019-07-13] MEDS: ENOXAPARIN 60 MG/0.6 ML INJ SUB-Q SCH ×2 (12:09→22:39)
--- NOTE | 2019-07-13 12:30 | Progress Note ---
Assessment and Plan Assessment and plan: SVT then converted Atrial flutter - s/p amio drip, consulted cardiology - on cardizem and therapeutic dose of lovenox - Stress test done today , Normal Acute respiratory failure due to COPD exacerbation Was Hypoxic and Hypercarbic on arrival. placed on IV Solumedrol IV abx -Levaquin and Duonebs QID and Prn Pulm consulted COPD with acute exacerbation Cont IV Solumedrol IV abx -Levaquin and Duonebs QID and Prn Consult pulmonology since patient had more wheezing after doing stress test today HLD (hyperlipidemia), On Statins Nicotine dependence Counselled, Nicoderm patch applied Hyponatremia Very mild, Avoid diuretics DVT prophylaxis, On Heparin History Interval history: Chest pain Shortness of breath Hospitalist Physical - Physical exam Narrative exam: Gen: Not in acute distress, lying in bed, malnourished HEENT: Normocephalic, atraumatic Neck: supple, no JVD Heart: S1 and S2 reg, no murmurs, rubs or gallop Lungs: Bilateral rhonchi, wheezing, Abd: soft, non tender, non distended, normal BS, Ext: No edema, no clubbing, no cyanosis Neuro: Awake, alert, oriented X 3, - Constitutional Vitals: Temp Pulse Resp BP Pulse Ox 97.9 F 78 18 142/83 96 07/13/19 11:56 07/13/19 11:56 07/13/19 11:56 07/13/19 11:56 07/13/19 11:56 General appearance: Present: no acute distress Results - Labs CBC & Chem 7: 07/10/19 03:42 07/12/19 13:02 Labs: Laboratory Last Values WBC 3.3 K/mm3 (4.5-11.0) L 07/10/19 03:42 RBC 5.10 M/mm3 (3.65-5.03) H 07/10/19 03:42 Hgb 13.0 gm/dl (11.8-15.2) 07/10/19 03:42 Hct 40.7 % (35.5-45.6) 07/10/19 03:42 MCV 80 fl (84-94) L 07/10/19 03:42 MCH 25 pg (28-32) L 07/10/19 03:42 MCHC 32 % (32-34) 07/10/19 03:42 RDW 16.5 % (13.2-15.2) H 07/10/19 03:42 Plt Count 175 K/mm3 (140-440) 07/10/19 03:42 Lymph % (Auto) 21.7 % (13.4-35.0) 07/10/19 03:42 [place] % (Auto) 2.9 % (0.0-7.3) 07/10/19 03:42 Eos % (Auto) 0.0 % (0.0-4.3) 07/10/19 03:42 Baso % (Auto) 0.3 % (0.0-1.8) 07/10/19 03:42 Lymph # 0.7 K/mm3 (1.2-5.4) L 07/10/19 03:42 [place] # 0.1 K/mm3 (0.0-0.8) 07/10/19 03:42 Eos # 0.0 K/mm3 (0.0-0.4) 07/10/19 03:42 Baso # 0.0 K/mm3 (0.0-0.1) 07/10/19 03:42 Seg Neutrophils % 75.1 % (40.0-70.0) H 07/10/19 03:42 Seg Neutrophils # 2.5 K/mm3 (1.8-7.7) 07/10/19 03:42 POC ABG pH 7.393 (7.35-7.45) 07/09/19 14:15 POC ABG pCO2 47.3 (35-45) H 07/09/19 14:15 POC ABG pO2 112 (80-105) H 07/09/19 14:15 POC ABG HCO3 28.8 (22-26 mml/L) 07/09/19 14:15 POC ABG Total CO2 30 (23-27mmol/L) 07/09/19 14:15 POC ABG O2 Sat 98 07/09/19 14:15 POC ABG Base Excess 4 ((-2) - (+3)mmol/L) 07/09/19 14:15 FiO2 40 % 07/09/19 14:15 Sodium 135 mmol/L (137-145) L 07/12/19 13:02 Potassium 4.4 mmol/L (3.6-5.0) 07/12/19 13:02 Chloride 93.8 mmol/L (98-107) L 07/12/19 13:02 Carbon Dioxide 25 mmol/L (22-30) 07/12/19 13:02 Anion Gap 21 mmol/L 07/12/19 13:02 BUN 16 mg/dL (9-20) 07/12/19 13:02 Creatinine 0.8 mg/dL (0.8-1.5) 07/12/19 13:02 Estimated GFR > 60 ml/min 07/12/19 13:02 BUN/Creatinine Ratio 20 % 07/12/19 13:02 Glucose 179 mg/dL (75-100) H 07/12/19 13:02 POC Glucose 190 (70-105) H 07/13/19 12:03 Hemoglobin A1c 6.0 % (4-6) 07/10/19 03:42 Calcium 8.8 mg/dL (8.4-10.2) 07/12/19 13:02 Magnesium 2.40 mg/dL (1.7-2.3) H 07/12/19 13:02 Total Bilirubin 0.30 mg/dL (0.1-1.2) 07/10/19 03:42 AST 23 units/L (5-40) 07/10/19 03:42 ALT 12 units/L (7-56) 07/10/19 03:42 Alkaline Phosphatase 48 units/L (35-129) 07/10/19 03:42 Troponin T < 0.010 ng/mL (0.00-0.029) 07/09/19 11:43 Total Protein 7.4 g/dL (6.3-8.2) 07/10/19 03:42 Albumin 4.0 g/dL (3.9-5) 07/10/19 03:42 Albumin/Globulin Ratio 1.2 % 07/10/19 03:42 Active Medications - Current Medications Current Medications: Generic Name Dose Route Start Last Admin Trade Name Freq PRN Reason Stop Dose Admin Acetaminophen 650 mg 07/09/19 22:38 Tylenol PO Q4H PRN Pain MILD(1-3)/Fever >100.5/BARNEY Albuterol/Ipratropium 1 ampul 07/11/19 14:00 07/13/19 07:33 Duoneb *Not For Prn Use* IH 1 ampul Q6HRT SIDNEY Administration Aspirin 81 mg 07/10/19 10:00 07/13/19 12:09 Halfprin Ec PO 81 mg DAILY SIDNEY Administration Budesonide 0.5 mg/ 0 mg 07/11/19 20:00 Arformoterol Tartrate 15 mcg IH Q12HRT [facility] Diltiazem HCl 60 mg 07/12/19 13:00 07/13/19 12:09 Cardizem PO 60 mg Q6H S[facility] Administration Enoxaparin Sodium 60 mg 07/13/19 10:00 07/13/19 12:09 Enoxaparin SUB-Q 60 mg Q12HR SIDNEY Administration Famotidine 20 mg 07/12/19 22:00 07/13/19 12:08 Pepcid PO 20 mg BID S[facility] Administration Guaifenesin 600 mg 07/10/19 01:00 07/13/19 12:08 Mucinex Er PO 600 mg BID SIDNEY Administration Guaifenesin 10 ml 07/11/19 20:28 07/12/19 09:26 Guaifenesin Dm Syrup PO 10 ml Q4H PRN Administration Cough Hydromorphone HCl 0.5 mg 07/09/19 22:38 Dilaudid IV Q3H PRN Pain , Severe (7-10) Levofloxacin/Dextrose 750 mg in 150 mls @ 100 mls/hr 07/10/19 10:00 07/13/19 12:08 Levaquin 750mg/150ml IV 07/14/19 11:29 100 mls/hr Q24HR SIDNEY Administration Protocol Methylprednisolone Sodium Succinate 40 mg 07/11/19 13:45 07/13/19 06:13 Solu-Medrol IV 40 mg Q8HR SIDNEY Administration Ondansetron HCl 4 mg 07/09/19 22:38 Zofran IV Q8H PRN Nausea And Vomiting Oxycodone/Acetaminophen 1 tab 07/09/19 22:38 07/13/19 02:24 Percocet 5/325 PO 1 tab Q6H PRN Administration Pain, Moderate (4-6) Pravastatin Sodium 20 mg 07/10/19 22:00 07/12/19 22:49 Pravachol PO 20 mg QHS SIDNEY Administration Sodium Chloride 10 ml 07/10/19 10:00 07/13/19 12:11 Sodium Chloride Flush Syringe 10 Ml IV 10 ml BID SIDNEY Administration Sodium Chloride 10 ml 07/09/19 22:38 Sodium Chloride Flush Syringe 10 Ml IV PRN PRN LINE FLUSH Nutrition/Malnutrition Assess - Dietary Evaluation Nutrition/Malnutrition Findings: Nutrition Notes Start: 07/12/19 13:49 Freq: Status: Active Protocol: Document 07/12/19 13:49 LP (Rec: 07/12/19 13:50 LP [id number]) Nutrition Notes Need for Assessment generated from: Low BMI Initial or Follow up Brief Note Current Diagnosis COPD,Hypertension,Heart Failure Current Diet NPO Pertinent Medications Solumedrol Weight Status Underweight Subjective/Other Information Screen for low BMI. 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 Slight temporal wasting observed. Nutrition Intervention Revisit per MD consult or patient Sign Off request:
--- NOTE | 2019-07-13 13:01 | Treadmill Report ---
SINGLE ISOTOPE DUAL STUDY MYOCARDIAL PERFUSION SCAN REPORT AGE: 63. SEX: Male. REFERRING PHYSICIAN: Adebayo Lynn MD, hospitalist. The patient received 10 mCi of technetium 99m Myoview intravenously under resting conditions. Resting myocardial perfusion scan was done. Subsequently, the patient underwent Lexiscan stress test as per the protocol. During Lexiscan stress, the patient received 28 mCi of technetium 99m Myoview intravenously. The patient developed respiratory distress associated with wheezing and he received 50 mg of intravenous aminophylline. He also received a breathing treatment by respiratory therapist. His O2 saturation was 88-90%. After 30-60 minutes, post-stress images were done. Computerized reconstruction images were performed for analysis. The post-stress images did not reveal any perfusion abnormality. Gated study did not reveal any wall motion abnormality. Left ventricular ejection fraction was normal and was calculated to be 70%. The resting images were also normal. CONCLUSION: 1. Shortness of breath, wheezing and cough and these symptoms became less after the patient received intravenous aminophylline and breathing treatment. 2. No chest pain. 3. No perfusion abnormality in the resting as well as stress myocardial perfusion scan imaging after the patient underwent Lexiscan stress test. 4. No wall motion abnormality. 5. Normal left ventricular systolic function and it was calculated to be 70%. JOB# [id number] [facility]
--- NOTE | 2019-07-13 15:39 | Consultation ---
History of Present Illness Consult date: 07/13/19 Requesting physician: LACI CHRISTIANSEN Reason for consult: dyspnea History of present illness: 63 yo admitted with increased SOB, wheezing, cough, congestion. Hospital course complicated by atrial flutter. On O2. Not any better. No hemoptysis, fevers, chills. Active Medications Acetaminophen (Tylenol) 650 mg PO Q4H PRN PRN Reason: Pain MILD(1-3)/Fever >100.5/BARNEY Albuterol/Ipratropium (Duoneb *Not For Prn Use*) 1 ampul IH Q6HRT [facility] Last Admin: 07/13/19 13:36 Dose: 1 ampul Documented by: Aspirin (Halfprin Ec) 81 mg PO DAILY [facility] Last Admin: 07/13/19 12:09 Dose: 81 mg Documented by: Budesonide 0.5 mg/ (Arformoterol Tartrate 15 mcg) 0 mg IH Q12HRT [facility] Diltiazem HCl (Cardizem) 60 mg PO Q6H [facility] Last Admin: 07/13/19 12:09 Dose: 60 mg Documented by: Enoxaparin Sodium (Enoxaparin) 60 mg SUB-Q Q12HR [facility] Last Admin: 07/13/19 12:09 Dose: 60 mg Documented by: Famotidine (Pepcid) 20 mg PO BID [facility] Last Admin: 07/13/19 12:08 Dose: 20 mg Documented by: Guaifenesin (Mucinex Er) 600 mg PO BID [facility] Last Admin: 07/13/19 12:08 Dose: 600 mg Documented by: Guaifenesin (Guaifenesin Dm Syrup) 10 ml PO Q4H PRN PRN Reason: Cough Last Admin: 07/12/19 09:26 Dose: 10 ml Documented by: Hydromorphone HCl (Dilaudid) 0.5 mg IV Q3H PRN PRN Reason: Pain , Severe (7-10) Levofloxacin/Dextrose (Levaquin 750mg/150ml) 750 mg in 150 mls @ 100 mls/hr IV Q24HR [facility]; Protocol Stop: 07/14/19 11:29 Last Infusion: 07/13/19 13:20 Dose: Infused Documented by: Methylprednisolone Sodium Succinate (Solu-Medrol) 80 mg IV Q8HR [facility] Ondansetron HCl (Zofran) 4 mg IV Q8H PRN PRN Reason: Nausea And Vomiting Oxycodone/Acetaminophen (Percocet 5/325) 1 tab PO Q6H PRN PRN Reason: Pain, Moderate (4-6) Last Admin: 07/13/19 02:24 Dose: 1 tab Documented by: Pravastatin Sodium (Pravachol) 20 mg PO QHS [facility] Last Admin: 07/12/19 22:49 Dose: 20 mg Documented by: Sodium Chloride (Sodium Chloride Flush Syringe 10 Ml) 10 ml IV BID [facility] Last Admin: 07/13/19 12:11 Dose: 10 ml Documented by: Sodium Chloride (Sodium Chloride Flush Syringe 10 Ml) 10 ml IV PRN PRN PRN Reason: LINE FLUSH Past History Past Medical History: CAD, COPD, hypertension, other (tobacco abuse) Past Surgical History: PTCA Social history: smoking, full code. denies: alcohol abuse, prescription drug abuse, IV drug use Family history: other (No pulm issues reported) Medications and Allergies Allergies Allergy/AdvReac Type Severity Reaction Status Date / Time No Known Allergies Allergy Unverified 07/09/19 10:47 Home Medications Medication Instructions Recorded Confirmed Last Taken Type Acetaminophen [Tylenol] 1,000 mg PO DAILY 07/09/19 07/09/19 Unknown History Albuterol Sulfate [Proventil Hfa] 1 puff INHALATION PRN PRN 07/09/19 07/09/19 07/09/19 History Aspirin [Adult Aspirin] 81 mg PO DAILY 07/09/19 07/09/19 07/08/19 History Budesonide/Formoterol Fumarate 1 puff INHALATION DAILY 07/09/19 07/09/19 07/09/19 History [Symbicort 80-4.5 Mcg Inhaler] Ibuprofen [Motrin 800 MG tab] 800 mg PO Q8HR PRN 07/09/19 07/09/19 07/08/19 History Simvastatin 10 mg PO DAILY 07/09/19 07/09/19 07/08/19 History Active Meds: Active Medications Acetaminophen (Tylenol) 650 mg PO Q4H PRN PRN Reason: Pain MILD(1-3)/Fever >100.5/BARNEY Albuterol/Ipratropium (Duoneb *Not For Prn Use*) 1 ampul IH Q6HRT [facility] Last Admin: 07/13/19 13:36 Dose: 1 ampul Documented by: Aspirin (Halfprin Ec) 81 mg PO DAILY [facility] Last Admin: 07/13/19 12:09 Dose: 81 mg Documented by: Budesonide 0.5 mg/ (Arformoterol Tartrate 15 mcg) 0 mg IH Q12HRT [facility] Diltiazem HCl (Cardizem) 60 mg PO Q6H [facility] Last Admin: 07/13/19 12:09 Dose: 60 mg Documented by: Enoxaparin Sodium (Enoxaparin) 60 mg SUB-Q Q12HR [facility] Last Admin: 07/13/19 12:09 Dose: 60 mg Documented by: Famotidine (Pepcid) 20 mg PO BID [facility] Last Admin: 07/13/19 12:08 Dose: 20 mg Documented by: Guaifenesin (Mucinex Er) 600 mg PO BID [facility] Last Admin: 07/13/19 12:08 Dose: 600 mg Documented by: Guaifenesin (Guaifenesin Dm Syrup) 10 ml PO Q4H PRN PRN Reason: Cough Last Admin: 07/12/19 09:26 Dose: 10 ml Documented by: Hydromorphone HCl (Dilaudid) 0.5 mg IV Q3H PRN PRN Reason: Pain , Severe (7-10) Levofloxacin/Dextrose (Levaquin 750mg/150ml) 750 mg in 150 mls @ 100 mls/hr IV Q24HR [facility]; Protocol Stop: 07/14/19 11:29 Last Infusion: 07/13/19 13:20 Dose: Infused Documented by: Methylprednisolone Sodium Succinate (Solu-Medrol) 80 mg IV Q8HR [facility] Ondansetron HCl (Zofran) 4 mg IV Q8H PRN PRN Reason: Nausea And Vomiting Oxycodone/Acetaminophen (Percocet 5/325) 1 tab PO Q6H PRN PRN Reason: Pain, Moderate (4-6) Last Admin: 07/13/19 02:24 Dose: 1 tab Documented by: Pravastatin Sodium (Pravachol) 20 mg PO QHS [facility] Last Admin: 07/12/19 22:49 Dose: 20 mg Documented by: Sodium Chloride (Sodium Chloride Flush Syringe 10 Ml) 10 ml IV BID [facility] Last Admin: 07/13/19 12:11 Dose: 10 ml Documented by: Sodium Chloride (Sodium Chloride Flush Syringe 10 Ml) 10 ml IV PRN PRN PRN Reason: LINE FLUSH Review of Systems All systems: negative Physical Examination Vital signs: Vital Signs Pulse Ox 98 07/09/19 10:54 General appearance: no acute distress, alert Eyes: non-icteric ENT: oropharynx moist Neck: supple Effort: normal Ascultation: Bilateral: wheezes Cardiovascular: regular rate and rhythm (no mrg) Gastrointestinal: normoactive bowel sounds, soft, non-tender, non-distended Integumentary: normal Extremities: no cyanosis, no edema, pink and warm normal mental status, non-focal exam, pupils equal and round, CN II-XII normal mood appropriate, affect normal Results - Laboratory Findings CBC and BMP: 07/10/19 03:42 07/12/19 13:02 ABG POC ABG pH 7.393 (7.35-7.45) 07/09/19 14:15 POC ABG pCO2 47.3 (35-45) H 07/09/19 14:15 POC ABG pO2 112 (80-105) H 07/09/19 14:15 POC ABG HCO3 28.8 (22-26 mml/L) 07/09/19 14:15 POC ABG Total CO2 30 (23-27mmol/L) 07/09/19 14:15 POC ABG O2 Sat 98 07/09/19 14:15 Abnormal lab findings: Abnormal Labs 07/09/19 07/09/19 07/09/19 11:43 11:43 14:15 WBC RBC 5.28 H MCV 80 L MCH 26 L RDW 16.3 H Sullivan % (Auto) 7.8 H Lymph # Seg Neutrophils % 72.5 H POC ABG pCO2 47.3 H POC ABG pO2 112 H Sodium 136 L Chloride 97.8 L BUN 7 L Glucose 103 H POC Glucose Magnesium 07/10/19 07/10/19 07/12/19 03:42 03:42 13:02 WBC 3.3 L RBC 5.10 H MCV 80 L MCH 25 L RDW 16.5 H Sullivan % (Auto) Lymph # 0.7 L Seg Neutrophils % 75.1 H POC ABG pCO2 POC ABG pO2 Sodium 135 L Chloride 94.3 L 93.8 L BUN Glucose 146 H 179 H POC Glucose Magnesium 2.40 H 07/13/19 12:03 WBC RBC MCV MCH RDW Sullivan % (Auto) Lymph # Seg Neutrophils % POC ABG pCO2 POC ABG pO2 Sodium Chloride BUN Glucose POC Glucose 190 H Magnesium - Diagnostic Findings Chest x-ray: report reviewed, image reviewed (hyperinflation) Assessment and Plan Imp: 1. COPD, probably severe, with acute exac. 2. Acute respiratory failure, hypoxia 3. Acute bronchitis 4. Chronic respiratory failure, hypercapnea 2/2 #1 5. Nicotine dependence, cigarettes 6. Paroxysmal atrial flutter 7. Pulm HTN Rec: 1. Increase Solumedrol 2. Cont. Duonebs; recommend home neb machine w/ Duonebs at d/c 3. Has Symbicort given by [facility]; needs to be using 2 puffs BID and return to [facility] for more medication/samples, etc.; he can also contact [employer] to apply for financial assistance w/ meds 4. Needs Proventil HFA refill at d/c 5. Home O2 eval. at d/c 6. Stop smoking, counseled 7. Pulm HTN and atrial arrhythmias probably related to severe COPD; outpatient PFTs Plan of care reviewed with patient, he understands/agrees Thanks for the consult.
[2019-07-13] MEDS: PRAVASTATIN 20 MG TAB PO SCH (22:39)
[2019-07-14] MEDS: IPRATROPIUM/ALBUTEROL SULFATE 3 ML AMPUL.NEB IH SCH ×4 (02:27→19:21)
[2019-07-14] MEDS: dilTIAZem 60 MG TAB PO SCH ×4 (02:30→18:54)
[2019-07-14] MEDS: methylPREDNISolone Sod Succinate 125 MG/2 ML INJ IV SCH ×3 (06:27→21:49)
[2019-07-14] MEDS: FAMOTIDINE 20 MG TAB PO SCH ×2 (09:27→21:49)
[2019-07-14] MEDS: ENOXAPARIN 60 MG/0.6 ML INJ SUB-Q SCH (09:27)
[2019-07-14] MEDS: ASPIRIN EC 81 MG TAB PO SCH (09:27)
[2019-07-14] MEDS: guaiFENesin ER 600 MG TAB PO SCH ×2 (09:27→21:50)
--- NOTE | 2019-07-14 10:28 | Progress Note ---
Assessment and Plan Pt underwent lexiscan MPI stress test yesterday which was negative. Echo reviewed - EF 55-60%, mild to mod TR, mod pulm HTN with RVSP 58mmHg. Currently stable cardiac status. Cont cardizem and convert lovenox to Eliquis 5mg BID. Pulmonary following. Nothing further to add from cardiac perspective at this time. Will sign off. Recommend follow up in our office with Dr. Ricketts within 1-2 weeks of discharge ([phone]). The patient has been seen in conjunction with Dr. Rodríguez who agrees with the assessment and plan of care. - Patient Problems (1) Paroxysmal atrial flutter Current Visit: Yes Status: Acute (2) Acute respiratory failure with hypoxia Current Visit: Yes Status: Acute (3) COPD with acute exacerbation Current Visit: Yes Status: Acute (4) CAD (coronary artery disease) Current Visit: Yes Status: Chronic (5) Stented coronary artery Current Visit: Yes Status: Chronic (6) Hypertension Current Visit: Yes Status: Chronic (7) Tobacco use Current Visit: Yes Status: Chronic (8) Pulmonary HTN Current Visit: Yes Status: Chronic Subjective Date of service: 07/14/19 Principal diagnosis: cp; palpitations; copd exac; PAFlutter Interval history: pt resting in bed, states he is feeling a little better, still with significant OAKES. in SR on tele with no acute events overnight. Objective Last Vital Signs Temp 97.9 F 07/14/19 07:31 Pulse 68 07/14/19 07:49 Resp 18 07/14/19 07:31 BP 151/91 07/14/19 07:49 Pulse Ox 97 07/14/19 07:31 - Physical Examination General: No Apparent Distress HEENT: Positive: PERRL Neck: Positive: neck supple Cardiac: Positive: Reg Rate and Rhythm, S1/S2 Lungs: Positive: Decreased Breath Sounds, Wheezes, Oxygen Neuro: Positive: Grossly Intact Abdomen: Positive: Unremarkable Skin: Positive: Clear Musculoskeletal: Normal Range of Motion Extremities: Present: normal - Imaging and Cardiology EKG: report reviewed (NSR with possible old infarct, ST-depression) Echo: pending Repolarization changes or abnormalities: ST or T wave suggestive of ischemia Myocardial infarction: anterior [place] (old age or i
--- NOTE | 2019-07-14 10:34 | Progress Note ---
Assessment and Plan - Patient Problems (1) Acute respiratory failure with hypoxia Current Visit: Yes Status: Acute (2) COPD with acute exacerbation Current Visit: Yes Status: Acute (3) Hyponatremia Current Visit: Yes Status: Acute (4) Hypertension Current Visit: Yes Status: Chronic Subjective Principal diagnosis: cp; palpitations; copd exac; PAFlutter Interval history: feels better Objective Vital Signs - 12hr 07/14/19 07/14/19 07/14/19 00:15 00:31 04:48 Temperature 98.1 F 98.0 F Pulse Rate 78 73 Respiratory 22 20 18 Rate Blood Pressure 163/86 Blood Pressure 141/68 [Left] O2 Sat by Pulse 99 88 Oximetry 07/14/19 07/14/19 07:31 07:49 Temperature 97.9 F Pulse Rate 68 68 Respiratory 18 Rate Blood Pressure 151/91 151/91 Blood Pressure [Left] O2 Sat by Pulse 97 Oximetry Constitutional: no acute distress, alert Eyes: non-icteric ENT: oropharynx moist Neck: supple Effort: normal Ascultation: Bilateral: diminished breath sounds Cardiovascular: regular rate and rhythm (no mrg) Gastrointestinal: normoactive bowel sounds, soft, non-tender, non-distended Integumentary: normal Extremities: no cyanosis, no edema, pink and warm Neurologic: normal mental status, non-focal exam, pupils equal and round, CN II-XII normal Psychiatric: mood appropriate, affect normal CBC and BMP: 07/10/19 03:42 07/12/19 13:02 ABG, PT/INR, D-dimer: ABG POC ABG pH 7.393 (7.35-7.45) 07/09/19 14:15 POC ABG pCO2 47.3 (35-45) H 07/09/19 14:15 POC ABG pO2 112 (80-105) H 07/09/19 14:15 POC ABG HCO3 28.8 (22-26 mml/L) 07/09/19 14:15 POC ABG Total CO2 30 (23-27mmol/L) 07/09/19 14:15 POC ABG O2 Sat 98 07/09/19 14:15 Abnormal lab findings: Abnormal Labs 07/09/19 07/09/19 07/09/19 11:43 11:43 14:15 WBC RBC 5.28 H MCV 80 L MCH 26 L RDW 16.3 H Edmunds % (Auto) 7.8 H Lymph # Seg Neutrophils % 72.5 H POC ABG pCO2 47.3 H POC ABG pO2 112 H Sodium 136 L Chloride 97.8 L BUN 7 L Glucose 103 H POC Glucose Magnesium 07/10/19 07/10/19 07/12/19 03:42 03:42 13:02 WBC 3.3 L RBC 5.10 H MCV 80 L MCH 25 L RDW 16.5 H Ed[place]ds % (Auto) Lymph # 0.7 L Seg Neutrophils % 75.1 H POC ABG pCO2 POC ABG pO2 Sodium 135 L Chloride 94.3 L 93.8 L BUN Glucose 146 H 179 H POC Glucose Magnesium 2.40 H 07/13/19 12:03 WBC RBC MCV MCH RDW Edmunds % (Auto) Lymph # Seg Neutrophils % POC ABG pCO2 POC ABG pO2 Sodium Chloride BUN Glucose POC Glucose 190 H Magnesium
--- NOTE | 2019-07-14 18:12 | Progress Note ---
Assessment and Plan Assessment and plan: SVT then converted Atrial flutter - s/p amio drip, consulted cardiology - on cardizem and therapeutic dose of lovenox - Stress test done 07/13 was normal Acute respiratory failure due to COPD exacerbation Was Hypoxic and Hypercarbic on arrival. placed on IV Solumedrol IV abx -Levaquin and Duonebs QID and Prn Pulm consulted COPD with acute exacerbation Cont IV Solumedrol IV abx -Levaquin and Duonebs QID and Prn Consult pulmonology since patient had more wheezing after doing stress test today HLD (hyperlipidemia), On Statins Nicotine dependence Counselled, Nicoderm patch applied Hyponatremia Very mild, Avoid diuretics DVT prophylaxis, On Heparin History Interval history: Chest pain Shortness of breath Hospitalist Physical - Physical exam Narrative exam: Gen: Not in acute distress, lying in bed, malnourished HEENT: Normocephalic, atraumatic Neck: supple, no JVD Heart: S1 and S2 reg, no murmurs, rubs or gallop Lungs: Bilateral rhonchi, wheezing, Abd: soft, non tender, non distended, normal BS, Ext: No edema, no clubbing, no cyanosis Neuro: Awake, alert, oriented X 3, - Constitutional Vitals: Temp Pulse Resp BP Pulse Ox 97.9 F 73 18 136/84 100 07/14/19 15:28 07/14/19 15:28 07/14/19 15:28 07/14/19 15:28 07/14/19 15:28 General appearance: Present: no acute distress Results - Labs CBC & Chem 7: 07/10/19 03:42 07/12/19 13:02 Labs: Laboratory Last Values WBC 3.3 K/mm3 (4.5-11.0) L 07/10/19 03:42 RBC 5.10 M/mm3 (3.65-5.03) H 07/10/19 03:42 Hgb 13.0 gm/dl (11.8-15.2) 07/10/19 03:42 Hct 40.7 % (35.5-45.6) 07/10/19 03:42 MCV 80 fl (84-94) L 07/10/19 03:42 MCH 25 pg (28-32) L 07/10/19 03:42 MCHC 32 % (32-34) 07/10/19 03:42 RDW 16.5 % (13.2-15.2) H 07/10/19 03:42 Plt Count 175 K/mm3 (140-440) 07/10/19 03:42 Lymph % (Auto) 21.7 % (13.4-35.0) 07/10/19 03:42 Christian % (Auto) 2.9 % (0.0-7.3) 07/10/19 03:42 Eos % (Auto) 0.0 % (0.0-4.3) 07/10/19 03:42 Baso % (Auto) 0.3 % (0.0-1.8) 07/10/19 03:42 Lymph # 0.7 K/mm3 (1.2-5.4) L 07/10/19 03:42 Christian # 0.1 K/mm3 (0.0-0.8) 07/10/19 03:42 Eos # 0.0 K/mm3 (0.0-0.4) 07/10/19 03:42 Baso # 0.0 K/mm3 (0.0-0.1) 07/10/19 03:42 Seg Neutrophils % 75.1 % (40.0-70.0) H 07/10/19 03:42 Seg Neutrophils # 2.5 K/mm3 (1.8-7.7) 07/10/19 03:42 POC ABG pH 7.393 (7.35-7.45) 07/09/19 14:15 POC ABG pCO2 47.3 (35-45) H 07/09/19 14:15 POC ABG pO2 112 (80-105) H 07/09/19 14:15 POC ABG HCO3 28.8 (22-26 mml/L) 07/09/19 14:15 POC ABG Total CO2 30 (23-27mmol/L) 07/09/19 14:15 POC ABG O2 Sat 98 07/09/19 14:15 POC ABG Base Excess 4 ((-2) - (+3)mmol/L) 07/09/19 14:15 FiO2 40 % 07/09/19 14:15 Sodium 135 mmol/L (137-145) L 07/12/19 13:02 Potassium 4.4 mmol/L (3.6-5.0) 07/12/19 13:02 Chloride 93.8 mmol/L (98-107) L 07/12/19 13:02 Carbon Dioxide 25 mmol/L (22-30) 07/12/19 13:02 Anion Gap 21 mmol/L 07/12/19 13:02 BUN 16 mg/dL (9-20) 07/12/19 13:02 Creatinine 0.8 mg/dL (0.8-1.5) 07/12/19 13:02 Estimated GFR > 60 ml/min 07/12/19 13:02 BUN/Creatinine Ratio 20 % 07/12/19 13:02 Glucose 179 mg/dL (75-100) H 07/12/19 13:02 POC Glucose 190 (70-105) H 07/13/19 12:03 Hemoglobin A1c 6.0 % (4-6) 07/10/19 03:42 Calcium 8.8 mg/dL (8.4-10.2) 07/12/19 13:02 Magnesium 2.40 mg/dL (1.7-2.3) H 07/12/19 13:02 Total Bilirubin 0.30 mg/dL (0.1-1.2) 07/10/19 03:42 AST 23 units/L (5-40) 07/10/19 03:42 ALT 12 units/L (7-56) 07/10/19 03:42 Alkaline Phosphatase 48 units/L (35-129) 07/10/19 03:42 Troponin T < 0.010 ng/mL (0.00-0.029) 07/09/19 11:43 Total Protein 7.4 g/dL (6.3-8.2) 07/10/19 03:42 Albumin 4.0 g/dL (3.9-5) 07/10/19 03:42 Albumin/Globulin Ratio 1.2 % 07/10/19 03:42 Active Medications - Current Medications Current Medications: Generic Name Dose Route Start Last Admin Trade Name Freq PRN Reason Stop Dose Admin Acetaminophen 650 mg 07/09/19 22:38 Tylenol PO Q4H PRN Pain MILD(1-3)/Fever >100.5/[facility] Albuterol/Ipratropium 1 ampul 07/11/19 14:00 07/14/19 13:17 Duoneb *Not For Prn Use* IH 1 ampul Q6HRT [facility] Administration Apixaban 5 mg 07/14/19 22:00 Eliquis PO Q12HR [facility] Protocol Aspirin 81 mg 07/10/19 10:00 07/14/19 09:27 Halfprin Ec PO 81 mg DAILY [facility] Administration Budesonide 0.5 mg/ 0 mg 07/11/19 20:00 Arformoterol Tartrate 15 mcg IH Q12HRT [facility] Diltiazem HCl 60 mg 07/12/19 13:00 07/14/19 14:09 Cardizem PO 60 mg Q6H [facility] Administration Famotidine 20 mg 07/12/19 22:00 07/14/19 09:27 Pepcid PO 20 mg BID [facility] Administration Guaifenesin 600 mg 07/10/19 01:00 07/14/19 09:27 Mucinex Er PO 600 mg BID [facility] Administration Guaifenesin 10 ml 07/11/19 20:28 07/12/19 09:26 Guaifenesin Dm Syrup PO 10 ml Q4H PRN Administration Cough Hydromorphone HCl 0.5 mg 07/09/19 22:38 Dilaudid IV Q3H PRN Pain , Severe (7-10) Methylprednisolone Sodium Succinate 80 mg 07/13/19 15:33 07/14/19 14:09 Solu-Medrol IV 80 mg Q8HR [facility] Administration Ondansetron HCl 4 mg 07/09/19 22:38 Zofran IV Q8H PRN Nausea And Vomiting Oxycodone/Acetaminophen 1 tab 07/09/19 22:38 07/13/19 02:24 Percocet 5/325 PO 1 tab Q6H PRN Administration Pain, Moderate (4-6) Pravastatin Sodium 20 mg 07/10/19 22:00 07/13/19 22:39 Pravachol PO 20 mg QHS [facility] Administration Sodium Chloride 10 ml 07/10/19 10:00 07/14/19 09:29 Sodium Chloride Flush Syringe 10 Ml IV 10 ml BID [facility] Administration Sodium Chloride 10 ml 07/09/19 22:38 Sodium Chloride Flush Syringe 10 Ml IV PRN PRN LINE FLUSH Nutrition/Malnutrition Assess - Dietary Evaluation Nutrition/Malnutrition Findings: Nutrition Notes Start: 07/12/19 13:49 Freq: Status: Active Protocol: Document 07/12/19 13:49 LP (Rec: 07/12/19 13:50 LP [id number]) Nutrition Notes Need for Assessment generated from: Low BMI Initial or Follow up Brief Note Current Diagnosis COPD,Hypertension,Heart Failure Current Diet NPO Pertinent Medications Solumedrol Weight Status Underweight Subjective/Other Information Screen for low BMI. Pt states eating well [employer] and denies wt changes. Slight temporal wasting observed. Nutrition Intervention Revisit per MD consult or patient Sign Off request:
[2019-07-14] MEDS: PRAVASTATIN 20 MG TAB PO SCH (21:49)
[2019-07-14] MEDS: oxyCODONE /ACETAMINOPHEN 5-325MG TAB PO PRN (21:50)
[2019-07-14] MEDS: APIXABAN 5 MG TAB PO SCH (21:50)
[2019-07-14] MEDS: guaiFENesin DM 200/20 MG ORAL LIQD 10 ML PO PRN (21:50)
[2019-07-15] MEDS: dilTIAZem 60 MG TAB PO SCH ×4 (01:20→18:26)
[2019-07-15] MEDS: IPRATROPIUM/ALBUTEROL SULFATE 3 ML AMPUL.NEB IH SCH ×5 (02:40→19:13)
[2019-07-15] MEDS: guaiFENesin DM 200/20 MG ORAL LIQD 10 ML PO PRN (05:32)
[2019-07-15] MEDS: oxyCODONE /ACETAMINOPHEN 5-325MG TAB PO PRN (05:32)
[2019-07-15] MEDS: methylPREDNISolone Sod Succinate 125 MG/2 ML INJ IV SCH (05:34)
--- NOTE | 2019-07-15 09:56 | Progress Note ---
Assessment and Plan - Patient Problems (1) Acute respiratory failure with hypoxia Current Visit: Yes Status: Acute (2) COPD with acute exacerbation Current Visit: Yes Status: Acute (3) Hyponatremia Current Visit: Yes Status: Acute (4) Hypertension Current Visit: Yes Status: Chronic Subjective Principal diagnosis: cp; palpitations; copd exac; PAFlutter Interval history: no new compliants Objective Vital Signs - 12hr 07/14/19 07/14/19 07/14/19 22:00 23:32 23:33 Temperature 98.2 F Pulse Rate 67 67 Pulse Rate [ Anterior Bilateral Throughout] Respiratory 22 Rate Respiratory Rate [Anterior Bilateral Throughout] Blood Pressure 148/84 O2 Sat by Pulse 100 Oximetry 07/15/19 07/15/19 07/15/19 01:20 04:13 05:11 Temperature 97.6 F Pulse Rate 67 64 Pulse Rate [ Anterior Bilateral Throughout] Respiratory 20 Rate Respiratory Rate [Anterior Bilateral Throughout] Blood Pressure 148/84 138/83 O2 Sat by Pulse 99 Oximetry 07/15/19 07/15/19 07/15/19 05:32 07:31 07:36 Temperature 97.2 F L Pulse Rate 60 Pulse Rate [ 86 Anterior Bilateral Throughout] Respiratory 20 18 Rate Respiratory 18 Rate [Anterior Bilateral Throughout] Blood Pressure 134/84 O2 Sat by Pulse 94 Oximetry 07/15/19 07/15/19 07/15/19 07:37 08:50 09:11 Temperature Pulse Rate 68 59 L Pulse Rate [ Anterior Bilateral Throughout] Respiratory Rate Respiratory Rate [Anterior Bilateral Throughout] Blood Pressure 134/84 O2 Sat by Pulse 96 Oximetry Constitutional: no acute distress, alert Eyes: non-icteric ENT: oropharynx moist Neck: supple Effort: normal Ascultation: Bilateral: diminished breath sounds Cardiovascular: regular rate and rhythm (no mrg) Gastrointestinal: normoactive bowel sounds, soft, non-tender, non-distended Integumentary: normal Extremities: no cyanosis, no edema, pink and warm Neurologic: normal mental status, non-focal exam, pupils equal and round, CN II- XII normal Psychiatric: mood appropriate, affect normal CBC and BMP: 07/10/19 03:42 07/12/19 13:02 ABG, PT/INR, D-dimer: ABG POC ABG pH 7.393 (7.35-7.45) 07/09/19 14:15 POC ABG pCO2 47.3 (35-45) H 07/09/19 14:15 POC ABG pO2 112 (80-105) H 07/09/19 14:15 POC ABG HCO3 28.8 (22-26 mml/L) 07/09/19 14:15 POC ABG Total CO2 30 (23-27mmol/L) 07/09/19 14:15 POC ABG O2 Sat 98 07/09/19 14:15 Abnormal lab findings: Abnormal Labs 07/09/19 07/09/19 07/09/19 11:43 11:43 14:15 WBC RBC 5.28 H MCV 80 L MCH 26 L RDW 16.3 H [place] % (Auto) 7.8 H Lymph # Seg Neutrophils % 72.5 H POC ABG pCO2 47.3 H POC ABG pO2 112 H Sodium 136 L Chloride 97.8 L BUN 7 L Glucose 103 H POC Glucose Magnesium 07/10/19 07/10/19 07/12/19 03:42 03:42 13:02 WBC 3.3 L RBC 5.10 H MCV 80 L MCH 25 L RDW 16.5 H [place] % (Auto) Lymph # 0.7 L Seg Neutrophils % 75.1 H POC ABG pCO2 POC ABG pO2 Sodium 135 L Chloride 94.3 L 93.8 L BUN Glucose 146 H 179 H POC Glucose Magnesium 2.40 H 07/13/19 12:03 WBC RBC MCV MCH RDW [place] % (Auto) Lymph # Seg Neutrophils % POC ABG pCO2 POC ABG pO2 Sodium Chloride BUN Glucose POC Glucose 190 H Magnesium
[2019-07-15] MEDS: FAMOTIDINE 20 MG TAB PO SCH ×2 (09:57→21:29)
[2019-07-15] MEDS: guaiFENesin ER 600 MG TAB PO SCH ×2 (09:57→21:29)
[2019-07-15] MEDS: ASPIRIN EC 81 MG TAB PO SCH (09:57)
[2019-07-15] MEDS: APIXABAN 5 MG TAB PO SCH ×2 (09:57→21:29)
--- NOTE | 2019-07-15 14:16 | Progress Note ---
Assessment and Plan Assessment and plan: SVT then converted Atrial flutter - s/p amio drip, consulted cardiology - on cardizem and therapeutic dose of lovenox - Stress test done 07/13 was normal Acute respiratory failure due to COPD exacerbation Was Hypoxic and Hypercarbic on arrival. placed on IV Solumedrol IV abx -Levaquin and Duonebs QID and Prn Pulm consulted, following COPD with acute exacerbation Cont IV Solumedrol IV abx -Levaquin and Duonebs QID and Prn Consult pulmonology since patient had more wheezing after doing stress test HLD (hyperlipidemia), On Statins Nicotine dependence Counselled, Nicoderm patch applied Hyponatremia Very mild, Avoid diuretics DVT prophylaxis, On Heparin Hopefully dc home tomorrow. History Interval history: Chest pain Still Shortness of breath Hospitalist Physical - Physical exam Narrative exam: Gen: Not in acute distress, lying in bed, malnourished HEENT: Normocephalic, atraumatic Neck: supple, no JVD Heart: S1 and S2 reg, no murmurs, rubs or gallop Lungs: Bilateral rhonchi, wheezing, Abd: soft, non tender, non distended, normal BS, Ext: No edema, no clubbing, no cyanosis Neuro: Awake, alert, oriented X 3, - Constitutional Vitals: Temp Pulse Resp BP Pulse Ox 97.2 F L 85 18 134/84 96 07/15/19 07:31 07/15/19 13:24 07/15/19 13:24 07/15/19 08:50 07/15/19 07:37 General appearance: Present: no acute distress Results - Labs CBC & Chem 7: 07/10/19 03:42 07/12/19 13:02 Labs: Laboratory Last Values WBC 3.3 K/mm3 (4.5-11.0) L 07/10/19 03:42 RBC 5.10 M/mm3 (3.65-5.03) H 07/10/19 03:42 Hgb 13.0 gm/dl (11.8-15.2) 07/10/19 03:42 Hct 40.7 % (35.5-45.6) 07/10/19 03:42 MCV 80 fl (84-94) L 07/10/19 03:42 MCH 25 pg (28-32) L 07/10/19 03:42 MCHC 32 % (32-34) 07/10/19 03:42 RDW 16.5 % (13.2-15.2) H 07/10/19 03:42 Plt Count 175 K/mm3 (140-440) 07/10/19 03:42 Lymph % (Auto) 21.7 % (13.4-35.0) 07/10/19 03:42 Canadian % (Auto) 2.9 % (0.0-7.3) 07/10/19 03:42 Eos % (Auto) 0.0 % (0.0-4.3) 07/10/19 03:42 Baso % (Auto) 0.3 % (0.0-1.8) 07/10/19 03:42 Lymph # 0.7 K/mm3 (1.2-5.4) L 07/10/19 03:42 Canadian # 0.1 K/mm3 (0.0-0.8) 07/10/19 03:42 Eos # 0.0 K/mm3 (0.0-0.4) 07/10/19 03:42 Baso # 0.0 K/mm3 (0.0-0.1) 07/10/19 03:42 Seg Neutrophils % 75.1 % (40.0-70.0) H 07/10/19 03:42 Seg Neutrophils # 2.5 K/mm3 (1.8-7.7) 07/10/19 03:42 POC ABG pH 7.393 (7.35-7.45) 07/09/19 14:15 POC ABG pCO2 47.3 (35-45) H 07/09/19 14:15 POC ABG pO2 112 (80-105) H 07/09/19 14:15 POC ABG HCO3 28.8 (22-26 mml/L) 07/09/19 14:15 POC ABG Total CO2 30 (23-27mmol/L) 07/09/19 14:15 POC ABG O2 Sat 98 07/09/19 14:15 POC ABG Base Excess 4 ((-2) - (+3)mmol/L) 07/09/19 14:15 FiO2 40 % 07/09/19 14:15 Sodium 135 mmol/L (137-145) L 07/12/19 13:02 Potassium 4.4 mmol/L (3.6-5.0) 07/12/19 13:02 Chloride 93.8 mmol/L (98-107) L 07/12/19 13:02 Carbon Dioxide 25 mmol/L (22-30) 07/12/19 13:02 Anion Gap 21 mmol/L 07/12/19 13:02 BUN 16 mg/dL (9-20) 07/12/19 13:02 Creatinine 0.8 mg/dL (0.8-1.5) 07/12/19 13:02 Estimated GFR > 60 ml/min 07/12/19 13:02 BUN/Creatinine Ratio 20 % 07/12/19 13:02 Glucose 179 mg/dL (75-100) H 07/12/19 13:02 POC Glucose 190 (70-105) H 07/13/19 12:03 Hemoglobin A1c 6.0 % (4-6) 07/10/19 03:42 Calcium 8.8 mg/dL (8.4-10.2) 07/12/19 13:02 Magnesium 2.40 mg/dL (1.7-2.3) H 07/12/19 13:02 Total Bilirubin 0.30 mg/dL (0.1-1.2) 07/10/19 03:42 AST 23 units/L (5-40) 07/10/19 03:42 ALT 12 units/L (7-56) 07/10/19 03:42 Alkaline Phosphatase 48 units/L (35-129) 07/10/19 03:42 Troponin T < 0.010 ng/mL (0.00-0.029) 07/09/19 11:43 Total Protein 7.4 g/dL (6.3-8.2) 07/10/19 03:42 Albumin 4.0 g/dL (3.9-5) 07/10/19 03:42 Albumin/Globulin Ratio 1.2 % 07/10/19 03:42 Active Medications - Current Medications Current Medications: Generic Name Dose Route Start Last Admin Trade Name Freq PRN Reason Stop Dose Admin Acetaminophen 650 mg 07/09/19 22:38 Tylenol PO Q4H PRN Pain MILD(1-3)/Fever >100.5/BARNEY Albuterol/Ipratropium 1 ampul 07/11/19 14:00 07/15/19 13:23 Duoneb *Not For Prn Use* IH 1 ampul Q6HRT SIDNEY Administration Apixaban 5 mg 07/14/19 22:00 07/15/19 09:57 Eliquis PO 5 mg Q12HR SIDNEY Administration Protocol Aspirin 81 mg 07/10/19 10:00 07/15/19 09:57 Halfprin Ec PO 81 mg DAILY SIDNEY Administration Budesonide 0.5 mg/ 0 mg 07/11/19 20:00 Arformoterol Tartrate 15 mcg IH Q12HRT SIDNEY Diltiazem HCl 60 mg 07/12/19 13:00 07/15/19 08:50 Cardizem PO 60 mg Q6H SIDNEY Administration Famotidine 20 mg 07/12/19 22:00 07/15/19 09:57 Pepcid PO 20 mg BID [facility] Administration Guaifenesin 600 mg 07/10/19 01:00 07/15/19 09:57 Mucinex Er PO 600 mg BID [facility] Administration Guaifenesin 10 ml 07/11/19 20:28 07/15/19 05:32 Guaifenesin Dm Syrup PO 10 ml Q4H PRN Administration Cough Hydromorphone HCl 0.5 mg 07/09/19 22:38 Dilaudid IV Q3H PRN Pain , Severe (7-10) Methylprednisolone Sodium Succinate 40 mg 07/15/19 14:00 Solu-Medrol IV Q8H [facility] Ondansetron HCl 4 mg 07/09/19 22:38 Zofran IV Q8H PRN Nausea And Vomiting Oxycodone/Acetaminophen 1 tab 07/09/19 22:38 07/15/19 05:32 Percocet 5/325 PO 1 tab Q6H PRN Administration Pain, Moderate (4-6) Pravastatin Sodium 20 mg 07/10/19 22:00 07/14/19 21:49 Pravachol PO 20 mg QHS SIDNEY Administration Sodium Chloride 10 ml 07/10/19 10:00 07/15/19 09:57 Sodium Chloride Flush Syringe 10 Ml IV 10 ml BID SIDNEY Administration Sodium Chloride 10 ml 07/09/19 22:38 07/15/19 05:34 Sodium Chloride Flush Syringe 10 Ml IV 10 ml PRN PRN Administration LINE FLUSH Nutrition/Malnutrition Assess - Dietary Evaluation Nutrition/Malnutrition Findings: Nutrition Notes Start: 07/12/19 13:49 Freq: Status: Active Protocol: Document 07/12/19 13:49 LP (Rec: 07/12/19 13:50 LP [id number]) Nutrition Notes Need for Assessment generated from: Low BMI Initial or Follow up Brief Note Current Diagnosis COPD,Hypertension,Heart Failure Current Diet NPO Pertinent Medications Solumedrol Weight Status Underweight Subjective/Other Information Screen for low BMI. Pt states eating well [employer] and denies wt changes. Slight temporal wasting observed. Nutrition Intervention Revisit per MD consult or patient Sign Off request:
[2019-07-15] MEDS: methylPREDNISolone Sod Succinate 40 MG/1 ML INJ IV SCH ×2 (14:45→21:29)
[2019-07-15] MEDS: PRAVASTATIN 20 MG TAB PO SCH (21:29)
[2019-07-16] MEDS: dilTIAZem 60 MG TAB PO SCH ×2 (01:06→06:33)
[2019-07-16] MEDS: IPRATROPIUM/ALBUTEROL SULFATE 3 ML AMPUL.NEB IH SCH ×3 (01:48→14:06)
[2019-07-16 04:28] VITALS: BP 146/86
[2019-07-16] MEDS: methylPREDNISolone Sod Succinate 40 MG/1 ML INJ IV SCH (06:33)
[2019-07-16] MEDS: BUDESONIDE 0.5 MG, ARFORMOTEROL NEBU 15 MCG IH SCH ×2 (08:08→08:09)
--- NOTE | 2019-07-16 08:50 | Progress Note ---
Assessment and Plan - Patient Problems (1) Acute respiratory failure with hypoxia Current Visit: Yes Status: Acute (2) COPD with acute exacerbation Current Visit: Yes Status: Acute (3) Hyponatremia Current Visit: Yes Status: Acute (4) Hypertension Current Visit: Yes Status: Chronic Subjective Principal diagnosis: cp; palpitations; copd exac; PAFlutter Interval history: feels better Objective Vital Signs - 12hr 07/15/19 07/15/19 07/15/19 21:28 22:00 23:54 Temperature 98.4 F Pulse Rate 69 83 64 Respiratory 18 Rate Blood Pressure 139/76 145/88 O2 Sat by Pulse 92 97 Oximetry 07/16/19 04:16 Temperature 98.0 F Pulse Rate 62 Respiratory 18 Rate Blood Pressure 146/86 O2 Sat by Pulse 95 Oximetry Constitutional: no acute distress, alert Eyes: non-icteric ENT: oropharynx moist Neck: supple Effort: normal Ascultation: Bilateral: diminished breath sounds Cardiovascular: regular rate and rhythm (no mrg) Gastrointestinal: normoactive bowel sounds, soft, non-tender, non-distended Integumentary: normal Extremities: no cyanosis, no edema, pink and warm Neurologic: normal mental status, non-focal exam, pupils equal and round, CN II- XII normal Psychiatric: mood appropriate, affect normal CBC and BMP: 07/10/19 03:42 07/12/19 13:02 ABG, PT/INR, D-dimer: ABG POC ABG pH 7.393 (7.35-7.45) 07/09/19 14:15 POC ABG pCO2 47.3 (35-45) H 07/09/19 14:15 POC ABG pO2 112 (80-105) H 07/09/19 14:15 POC ABG HCO3 28.8 (22-26 mml/L) 07/09/19 14:15 POC ABG Total CO2 30 (23-27mmol/L) 07/09/19 14:15 POC ABG O2 Sat 98 07/09/19 14:15 Abnormal lab findings: Abnormal Labs 07/09/19 07/09/19 07/09/19 11:43 11:43 14:15 WBC RBC 5.28 H MCV 80 L MCH 26 L RDW 16.3 H Elliott % (Auto) 7.8 H Lymph # Seg Neutrophils % 72.5 H POC ABG pCO2 47.3 H POC ABG pO2 112 H Sodium 136 L Chloride 97.8 L BUN 7 L Glucose 103 H POC Glucose Magnesium 07/10/19 07/10/19 07/12/19 03:42 03:42 13:02 WBC 3.3 L RBC 5.10 H MCV 80 L MCH 25 L RDW 16.5 H Elliott % (Auto) Lymph # 0.7 L Seg Neutrophils % 75.1 H POC ABG pCO2 POC ABG pO2 Sodium 135 L Chloride 94.3 L 93.8 L BUN Glucose 146 H 179 H POC Glucose Magnesium 2.40 H 07/13/19 12:03 WBC RBC MCV MCH RDW Elliott % (Auto) Lymph # Seg Neutrophils % POC ABG pCO2 POC ABG pO2 Sodium Chloride BUN Glucose POC Glucose 190 H Magnesium
[2019-07-16] MEDS ORDERED: predniSONE 20 MG TAB PO SCH (10:00)
[2019-07-16] MEDS: APIXABAN 5 MG TAB PO SCH (10:22)
[2019-07-16] MEDS: guaiFENesin ER 600 MG TAB PO SCH (10:22)
[2019-07-16] MEDS: ASPIRIN EC 81 MG TAB PO SCH (10:23)
[2019-07-16] MEDS: FAMOTIDINE 20 MG TAB PO SCH (10:23)
--- NOTE | 2019-07-16 13:03 | Discharge Summary ---
Providers - Providers Date of Admission: 07/09/19 15:13 Date of discharge: 07/16/19 Attending physician: LACI CHRISTIANSEN 07/09/19 Consult to Case Management [CONS] Routine Services Needed at Discharge: Home Health Services Notified:: correctional casework specialist 07/11/19 11:09 Consult to Physician [CONS] Routine Comment: Consulting Provider: SHELLEY GALLAGHER Physician Instructions: Reason For Exam: SVT 07/13/19 12:09 Consult to Physician [CONS] Routine Comment: Consulting Provider: CHEPE TRAVIS Physician Instructions: Reason For Exam: COPD exacerbation Primary care physician: DIMENSIONAL ENGINEER Hospitalization Condition: Fair Hospital course: Patient is 63 yo male with hx of HTN, COPD, CHF presented with shortness of breath, cough wheezing for one week. No relief with albuterol. He was seen and evaluated in ED and diagnosed with acute respiratory failure due to COPD exacerbation. He was started on solumedrol, nebulizer, supplemental Oxygen and admitted SVT then converted Atrial flutter - s/p amio drip, consulted cardiology - on cardizem and therapeutic dose of lovenox - Stress test done 07/13 was normal Acute respiratory failure due to COPD exacerbation Was Hypoxic and Hypercarbic on arrival. placed on IV Solumedrol IV abx -Levaquin and Duonebs QID and Prn Pulm consulted, followed during admission. COPD with acute exacerbation Cont IV Solumedrol IV abx -Levaquin and Duonebs QID and Prn Consult pulmonology since patient had more wheezing after doing stress test so delayed disharge Hyperlipidemia), On Statins Nicotine dependence Counselled, Nicoderm patch applied Hyponatremia mild Total time spent on discharge, 33 mins Disposition: [id number] TO HOME OR SELFCARE - Discharge Diagnoses (1) Acute respiratory failure with hypoxia Status: Acute (2) COPD with acute exacerbation Status: Acute (3) Paroxysmal atrial flutter Status: Acute (4) CAD (coronary artery disease) Status: Chronic (5) HLD (hyperlipidemia) Status: Chronic Qualifiers: Hyperlipidemia type: mixed hyperlipidemia Qualified Code(s): E78.2 - Mixed hyperlipidemia (6) Hypertension Status: Chronic (7) Pulmonary HTN Status: Chronic (8) Stented coronary artery Status: Chronic Core Measure Documentation - Palliative Care Palliative Care/ Comfort Measures: Not Applicable - Core Measures Any of the following diagnoses?: none Exam - Constitutional Vitals: Temp Pulse Resp BP Pulse Ox 98.0 F 63 18 146/86 95 07/16/19 04:16 07/16/19 08:00 07/16/19 07:50 07/16/19 04:16 07/16/19 10:00 Plan Activity: advance as tolerated Diet: low fat, low cholesterol, low salt Plan of Treatment: 1.Follow up with PCP or [facility] in 1 week. 2.Follow up with Luba Sanchez in 1 week 3.Follow up with Dr. Gallagher or residential sales rep at [facility] in 1 week Follow up with: SHELLEY GALLAGHER MD [Staff Physician] - 7 Days LAVELL GOLDBERG MD [Staff Physician] - 7 Days PRIMARY CARE, [Primary Care Provider] - 3-5 Days Prescriptions: dilTIAZem [Cardizem] 60 mg PO Q6H #120 tablet Apixaban [Eliquis] 5 mg PO Q12HR #60 tablet guaiFENesin ER [Mucinex ER] 600 mg PO BID #10 tablet Famotidine [Pepcid] 20 mg PO BID #60 tablet Prednisone [predniSONE 5 mg (6-Day Pack, 21 Tabs)] 5 mg PO .TAPER #1 tab.ds.pk Albuterol Sulfate [Proventil Hfa] 2 puff INHALATION Q4H PRN #1 pump PRN Reason: Shortness Of Breath
== END 2019-07-16 15:00 | disposition home or self-care (01) | DRG 189 ==
LOC: EDBD → ED 10:28 → 4A 15:13
PROVIDERS: ADMIT Internal Medicine; ATTEND Internal Medicine
PROC: 4A033R1 Measurement of Arterial Saturation, Peripheral, Percutaneous Approach (ICD-10-PCS; principal; 2019-07-09)
PROC: 5A09357 Assistance with Respiratory Ventilation, Less than 24 Consecutive Hours, Continuous Positive Airway Pressure (ICD-10-PCS; 2019-07-09)
DX: J96.01 Acute respiratory failure with hypoxia (principal); J44.1 Chronic obstructive pulmonary disease with (acute) exacerbation; I48.92 Unspecified atrial flutter; J44.0 Chronic obstructive pulmonary disease with (acute) lower respiratory infection; I47.1 Supraventricular tachycardia; E87.1 Hypo-osmolality and hyponatremia; J96.12 Chronic respiratory failure with hypercapnia; J20.9 Acute bronchitis, unspecified; I25.10 Atherosclerotic heart disease of native coronary artery without angina pectoris; F17.210 Nicotine dependence, cigarettes, uncomplicated; E78.2 Mixed hyperlipidemia; I27.20 Pulmonary hypertension, unspecified; I11.0 Hypertensive heart disease with heart failure; I50.9 Heart failure, unspecified; Z79.82 Long term (current) use of aspirin; Z95.5 Presence of coronary angioplasty implant and graft; Z79.899 Other long term (current) drug therapy; Z71.6 Tobacco abuse counseling; Z82.49 Family history of ischemic heart disease and other diseases of the circulatory system; Z72.89 Other problems related to lifestyle
CPT/HCPCS: 36415; 71045; 78452; 80048; 80053; 82803; 82962; 83036; 83735; 84484; 85025; 93005; 93010; 93017; 93306; 94640; 94644; 94760; 96374; 96375; 99406; G0378; A9270-GY; A9502; J0280; J0282; J1644; J1650; J1940; J1956; J2785; J2920; J2930; J7060; J7512

== ENCOUNTER 2019-10-13 14:43 | Outpatient (CLI) | payer OTHER ==
--- NOTE | 2019-10-13 15:53 | XRay Report ---
HISTORY:BILATERAL KNEE PAIN COMPARISON: None. TECHNIQUE: AP lateral and obliques views were obtained FINDINGS: Bilateral knees Bones: No fracture or dislocation. Joint spaces: Mild narrowing of the femoral tibial articulation is present bilaterally with osteophyt e formation. Mild narrowing of the right patellofemoral articulation is present. Multiple loose ángel s are present in both articular spaces. Soft tissues: No significant abnormality. Additional findings: None. IMPRESSION: 1. Degenerative changes as noted Signer Name: Deon Soto MD Signed: 10/13/2019 3:48 PM Workstation Name: [id number]
== END 2019-10-13 14:44 | disposition home or self-care (01) ==
LOC: XRAY 14:43
PROVIDERS: ATTEND Internal Medicine
DX: Z02.71 Encounter for disability determination (principal); M17.0 Bilateral primary osteoarthritis of knee; M25.762 Osteophyte, left knee; M25.761 Osteophyte, right knee